=== PATIENT | male | born 1960 | race Caucasian/White ===

== ENCOUNTER 2024-07-06 09:17 | Observation (INO) | payer BC, SELFPAY ==
[2024-07-06] VITALS (46 sets, daily range): BP systolic 109–189; BP diastolic 62–102; PULSE 59–104; RESP 15–30; TEMP 36.2; O2SAT 93–100; BMI 27.2
--- NOTE | ~2024-07-06 | XR_ITS ---
EXAMINATION: XR chest 2V DATE: 07/06/2024 09:48 INDICATION: Chest pain. TECHNIQUE: Frontal and lateral views of the chest were obtained. COMPARISON: None. FINDINGS: There is mild atelectasis versus scarring in left upper lung zone and left lower lung zone. No pleural effusion or pneumothorax. The heart size is normal. IMPRESSION: 1. Mild atelectasis versus scarring in left upper lung zone and left lower lung zone. Reviewed, dictated and finalized at location A. INSTALLER
--- OUTSIDE RECORDS SUMMARY | 2024-07-06 09:20 | XMS_ITS | Clinical Summary ---
Author Organization [facility] Address [address] [place] [address]. [place] [address] Care Team Providers Care Historical Guide Name Role Phone Unavailable Primary Care Provider Unavailabl e Social History Tobacco Use Types Packs/Day Years Used Date Smoking Tobacco: Never Assessed Sex and Gender Information Value Date Recorded Sex Assigned at Not on file Legal Sex Male 7:30 PM CDT Gender Identity Not on file Sexual Orientation Not on file Plan of Treatment Health Maintenance Due Date Last Done Comments Colorectal Cancer Screening Colonoscopy (10 Years) 1962 Annual Physical 1965 Hepatitis C 1980 DTaP, Tdap and Td Vaccines ( 1 - Tdap) 1981 Zoster Vaccines (1 of 2) 2012 COVID-19 Vaccine (2023-2 5 season) 2024 Influenza Adult (#1) 2024 RSV Immunization or 60+ Years (1 - 1-dose 75+ series) 2037 Meningococcal B Vaccine Aged Out No l onger eligible based on patient's age to complete this topic Meningococcal Vaccine Aged Out No samantha tracey eligible based on patient's age to complete this topic Pneumococcal Vaccine: Pediat rics (0 to 5 Years) and At-Risk Patients (6 to 64 Years) Aged Out No longer eligible b ased on patient's age to complete this topic RSV Immunizations Under 20 Months Aged Out No longer eligible based on patient's age to complete this topic
--- OUTSIDE RECORDS SUMMARY | 2024-07-06 09:21 | XMS_ITS | Data Portability ---
Author Organization [place] [facility], Main Office Address [address] [place] [address] Assessment No assessment recorded. Plan of Treatment Reminders Order Date Submit Date Provider Last Modified By Organization Details Last Modified Time Details Appointments Any 30 2024 07:30A M Chantelle Carrasco NP Not available Not available Not available Lab PSA, serum or plasma [email or web address] [place] [address], [address] [facility], [place], [address], 05/27/2024 08:18:01 CBC w/ auto diff 2023 024 [facility], [address] [facility], [place], [address], 12/17/2023 14:49:44 lipid panel, serum 2023 024 GAFFNEY [facility], [address] [facility], [place], [address], 12/17/2023 14:49:43 CMP, serum or plasma 2023 024 GAFFNEY [facility], [address] [facility], [place], [address], 12/17/2023 14:49:44 Referral None recorded. Procedures None recorded. Surgeries None recorded. Imaging None recorded. Medication Orders lisinopri l 10 mg-hydroc hlorothia zide 12.5 mg tablet 2023 024 [facility], [address] [facility], [place], [address], 12/12/2023 15:36:37 atorvasta tin 80 mg tablet 2023 024 [facility], [address] [facility], [place], [address], 12/12/2023 15:36:35 Patient TargetsNo targets recorded. Patient InstructionsNo instructions recorded. Reason for Referral None Reported. Results Created Date Observation Date Name Description Value Unit Range Abnormal Flag Note LastModifiedBy Organization Detail LastModifiedTime 05/19/20 22 05/19/2022 HEMOG LOBIN A1C HA1C 5.8 % 4.0-6. 0 Diabe yayo Scree corey Crite thalia: <5.7% Consi stent with absen ce of diabe yayo 5.7-6 .4% Consi stent with incre ased risk for diabe yayo (pred iabet es) >OR=6 .5% Consi stent with diabe yayo REFER ENCE: Diabe yayo Care 2016, 39(Coon ppl.1 ):s13 -s22 Not Available [facility] (Lab) [address] [place], [address], 05/19/2022 22:31:41 05/19/20 22 05/19/2022 TSH thyroid-stim ulating hormone 1.330 uIU/m L 0.465- 4.680 Not Available [facility] (Lab) [address] [place], [address], 05/19/2022 21:49:17 05/19/20 22 05/19/2022 PSA SCREE N PSA medicare screen 1.03 NG/mL 0.00-4 .00 Not Available [facility] (Lab) [address] [place], [address], 05/19/2022 21:49:16 05/19/20 22 05/19/2022 URIC ACID SERUM uric acid 9.1 mg/dL 3.5-8. 5 high Not Available [facility] (Lab) [address] [place], [address], 05/19/2022 21:44:27 05/19/20 22 05/19/2022 COMPR EHENS DELFINA METAB OLIC PANEL sodium 140 mmol/ L 137-14 5 Not Available [facility] (Lab) [address] [facility] [place], [address], 05/19/2022 21:44:23 05/19/20 22 05/19/2022 COMPR EHENS DELFINA METAB OLIC PANEL potassium 4.0 mmol/ L 3.5-5. 1 Not Available [facility] (Lab) [address] [place], [address], 05/19/2022 21:44:23 05/19/20 22 05/19/2022 COMPR EHENS DELFINA METAB OLIC PANEL chloride 101 mmol/ L 98-107 Not Available [facility] (Lab) [address] [place], [address], 05/19/2022 21:44:23 05/19/20 22 05/19/2022 COMPR EHENS DELFINA METAB OLIC PANEL carbon dioxide 28 mmol/ L 22-30 Not Available [facility] (Lab) [address] [place], [address], 05/19/2022 21:44:23 05/19/20 22 05/19/2022 COMPR EHENS DELFINA METAB OLIC PANEL anion gap 15.0 mmol/ L 14-22 Not Available [facility] (Lab) [address] [place], [address], 05/19/2022 21:44:23 05/19/20 22 05/19/2022 COMPR EHENS DELFINA METAB OLIC PANEL glucose 105 mg/dL 70-99 high Not Available [facility] (Lab) [address] [place], [address], 05/19/2022 21:44:23 05/19/20 22 05/19/2022 COMPR EHENS DELFINA METAB OLIC PANEL BUN 15 mg/dL 8-19 Not Available [facility] (Lab) [address] [place], [address], 05/19/2022 21:44:23 05/19/20 22 05/19/2022 COMPR EHENS DELFINA METAB OLIC PANEL creatinine 0.79 mg/dL 0.66-1 .25 Not Available [facility] (Lab) [address] [place], [address], 05/19/2022 21:44:23 05/19/20 22 05/19/2022 COMPR EHENS DELFINA METAB OLIC PANEL GFR >60 Refer ence Range : [place] ge GFR Healt hy Adult : >60 mL/mi n/1.7 3 m2 Chron ic Kidne y Disea se: 15-60 mL/mi n/1.7 3 m2 Kidne y Failu re: <15/m L/min /1.73 m2 www.n iddk. nih.g ov The MDRD study equat ion has not been valid ated in child madyson <18 years of age; pregn ant women ; the elder ly >85 years of age; or in some racia l or ethni c subgr oups, such as Hispa nics. Outsi de the valid ated kevin eters , estim ated GFR is less accur ate, requi ring clini colten judgm ent on a case- by-ca se basis . Clini colten inter preta tion for other races and ages must be made by the clini rk. The MDRD study equat ion has not been valid ated for the evalu ation of serum creat inine relat ed to nutri dulce l statu s or medic ation usage . For perso ns <18 years of age, a pedia tric GFR calcu lator is avail able on the F websi te: https ://jay w.gopi sandoval.o rg/pr ofess ional s/kdo qi/gf r_cal culat or Not Available [facility] (Lab) [address] [place], [address], 05/19/2022 21:44:23 05/19/20 22 05/19/2022 COMPR EHENS DELFINA METAB OLIC PANEL alkaline phosphatase 105 U/L 38-126 Not Available [facility] (Lab) [address] [place], [address], 05/19/2022 21:44:23 05/19/20 22 05/19/2022 COMPR EHENS DELFINA METAB OLIC PANEL alanine aminotransfe rase 43 U/L 0-50 Not Available [facility] (Lab) [address] [place], [address], 05/19/2022 21:44:23 05/19/20 22 05/19/2022 COMPR EHENS DELFINA METAB OLIC PANEL aspartate aminotransfe rase 31 U/L 15-46 Not Available [facility] (Lab) [address] [place], [address], 05/19/2022 21:44:23 05/19/20 22 05/19/2022 COMPR EHENS DELFINA METAB OLIC PANEL bilirubin, total 1.10 mg/dL 0.20-1 .30 Not Available [facility] (Lab) [address] [place], [address], 05/19/2022 21:44:23 05/19/20 22 05/19/2022 COMPR EHENS DELFINA METAB OLIC PANEL calcium 9.9 mg/dL 8.4-10 .2 Not Available [facility] (Lab) [address] [place], [address], 05/19/2022 21:44:23 05/19/20 22 05/19/2022 COMPR EHENS DELFINA METAB OLIC PANEL total protein 8.2 g/dL 6.3-8. 2 Not Available [facility] (Lab) [address] [place], [address], 05/19/2022 21:44:23 05/19/20 22 05/19/2022 COMPR EHENS DELFINA METAB OLIC PANEL albumin 5.0 g/dL 3.4-5. 0 Not Available [facility] (Lab) [address] [place], [address], 05/19/2022 21:44:23 05/19/20 22 05/19/2022 COMPR EHENS DELFINA METAB OLIC PANEL globulin 3.2 g/dL 2.6-4. 2 Not Available [facility] (Lab) [address] [place], [address], 05/19/2022 21:44:23 05/19/20 22 05/19/2022 COMPR EHENS DELFINA METAB OLIC PANEL A/G ratio 1.6 ratio 1.0-2. 0 Not Available [facility] (Lab) [address] [place], [address], 05/19/2022 21:44:23 05/19/20 22 05/19/2022 LIPID PANEL cholesterol 198 mg/dL 140-19 9 NIH JONES NSUS RECOM MENDA TION FOR MIRACLE STERO L: ADULT CHILD LOW RISK: <200 <170 BORDE RLINE : <200- 239 ----- HIGH RISK: >240 >200 Not Available [facility] (Lab) [address] [place], [address], 05/19/2022 21:44:17 05/19/20 22 05/19/2022 LIPID PANEL triglyceride s 293 mg/dL 0-150 high NIH JONES NSUS REPOR T RECOM MENDA TION FOR TRIGL YCERI GAUTAM: ADULT CHILD LOW RISK: <150 ----- BODER LINE: 150-1 99 ----- HIGH RISK: >200 ----- Not Available [facility] (Lab) [address] [place], [address], 05/19/2022 21:44:17 05/19/20 22 05/19/2022 LIPID PANEL HDL cholesterol 32 mg/dL 40- low Not Available [facility] (Lab) [address] [place], [address], 05/19/2022 21:44:17 05/19/20 22 05/19/2022 LIPID PANEL LDL cholesterol, calculated 107 mg/dL 0-130 NIH JONES NSUS REPOR T RECOM MENDA TIONS FOR LDL: ADULT CHILD LOW RISK <130 <110 (OPTI MAL LDL) <100 ----- BORDE RLINE : 130-1 59 ----- HIGH RISK: >160 >130 A TRIGL YCERI DE RESUL T >400 INVAL IDATE S THE CALCU LATIO N FOR LDL FRACT IONAT ION - THE LDL RESUL T WILL NOT BE REPOR TASHIA. Not Available [facility] (Lab) [address] [place], [address], 05/19/2022 21:44:17 05/19/20 22 05/19/2022 URINA LYSIS COMPL ETE, IRIS color light- yellow Not Available [facility] (Lab) [address] [place], [address], 05/19/2022 21:36:51 05/19/20 22 05/19/2022 URINA LYSIS COMPL ETE, IRIS appear clear Not Available [facility] (Lab) [address] [place], [address], 05/19/2022 21:36:51 05/19/20 22 05/19/2022 URINA LYSIS COMPL ETE, IRIS specific gravity 1.006 1.001- 1.030 Not Available [facility] (Lab) [address] [place], [address], 05/19/2022 21:36:51 05/19/20 22 05/19/2022 URINA LYSIS COMPL ETE, IRIS pH 6.5 pH_un its 5.0-9. 0 Not Available [facility] (Lab) [address] [place], [address], 05/19/2022 21:36:51 05/19/20 22 05/19/2022 URINA LYSIS COMPL ETE, IRIS leukocytes negati ve giancarlo/u L negati ve- Not Available [facility] (Lab) [address] [place], [address], 05/19/2022 21:36:51 05/19/20 22 05/19/2022 URINA LYSIS COMPL ETE, IRIS nitrite negati ve negati ve- Not Available [facility] (Lab) [address] [place], [address], 05/19/2022 21:36:51 05/19/20 22 05/19/2022 URINA LYSIS COMPL ETE, IRIS protein negati ve mg/dL negati ve- Not Available [facility] (Lab) [address] [place], [address], 05/19/2022 21:36:51 05/19/20 22 05/19/2022 URINA LYSIS COMPL ETE, IRIS glucose normal mg/dL normal - Not Available [facility] (Lab) [address] [place], [address], 05/19/2022 21:36:51 05/19/20 22 05/19/2022 URINA LYSIS COMPL ETE, IRIS ketones negati ve mg/dL negati ve- Not Available [facility] (Lab) [address] [place], [address], 05/19/2022 21:36:51 05/19/20 22 05/19/2022 URINA LYSIS COMPL ETE, IRIS urobilinogen normal mg/dL normal - Not Available [facility] (Lab) [address] [place], [address], 05/19/2022 21:36:51 05/19/20 22 05/19/2022 URINA LYSIS COMPL ETE, IRIS bilirubin negati ve mg/dL negati ve- Not Available [facility] (Lab) [address] [place], [address], 05/19/2022 21:36:51 05/19/20 22 05/19/2022 URINA LYSIS COMPL ETE, IRIS blood negati ve mg/dL negati ve- Not Available [facility] (Lab) [address] [place], [address], 05/19/2022 21:36:51 05/19/20 22 05/19/2022 URINA LYSIS COMPL ETE, IRIS white blood cells 0-8 /i??h pfi?? 0-8 Not Available [facility] (Lab) [address] [place], [address], 05/19/2022 21:36:51 05/19/20 22 05/19/2022 URINA LYSIS COMPL ETE, IRIS red blood cells 0-4 /i??h pfi?? 0-4 Not Available [facility] (Lab) [address] [facility] [place], [address], 05/19/2022 21:36:51 05/19/20 22 05/19/2022 URINA LYSIS COMPL ETE, IRIS bacteria none Not Available [facility] (Lab) [address] [place], [address], 05/19/2022 21:36:51 05/19/20 22 05/19/2022 URINA LYSIS COMPL ETE, IRIS mucous occasi onal /i??l pfi?? abnormal Not Available [facility] (Lab) [address] [place], [address], 05/19/2022 21:36:51 05/19/20 22 05/19/2022 URINA LYSIS COMPL ETE, IRIS squamous epithelial none /i??l pfi?? abnormal Not Available [facility] (Lab) [address] [facility] [place], [address], 05/19/2022 21:36:51 05/19/20 22 05/19/2022 CBC W/O DIFFE RENTI AL white blood cells 4.5 x10'3 /uL 4.2-10 .8 Not Available [facility] (Lab) [address] [place], [address], 05/19/2022 21:22:43 05/19/20 22 05/19/2022 CBC W/O DIFFE RENTI AL red blood cells 5.12 x10'6 /uL 4.10-5 .80 Not Available [facility] (Lab) [address] [place], [address], 05/19/2022 21:22:43 05/19/20 22 05/19/2022 CBC W/O DIFFE RENTI AL hemoglobin 16.3 g/dL 13.2-1 7.0 Not Available [facility] (Lab) [address] [place], [address], 05/19/2022 21:22:43 05/19/20 22 05/19/2022 CBC W/O DIFFE RENTI AL hematocrit 48.7 % 39.3-5 0.0 Not Available [facility] (Lab) [address] [place], [address], 05/19/2022 21:22:43 05/19/20 22 05/19/2022 CBC W/O DIFFE RENTI AL mean red cell volume 95.1 fL 80.0-9 7.0 Not Available [facility] (Lab) [address] [place], [address], 05/19/2022 21:22:43 05/19/20 22 05/19/2022 CBC W/O DIFFE RENTI AL mean red cell hemoglobin 31.8 pg 27.0-3 3.0 Not Available [facility] (Lab) [address] [place], [address], 05/19/2022 21:22:43 05/19/20 22 05/19/2022 CBC W/O DIFFE RENTI AL mean RBC HGB concentratio n 33.5 g/dL 31.0-3 6.0 Not Available [facility] (Lab) [address] [place], [address], 05/19/2022 21:22:43 05/19/20 22 05/19/2022 CBC W/O DIFFE RENTI AL red cell distribution width 12.1 % 11.8-1 5.5 Not Available [facility] (Lab) [address] [place], [address], 05/19/2022 21:22:43 05/19/20 22 05/19/2022 CBC W/O DIFFE RENTI AL platelets 282 x10'3 /uL 150-40 0 Not Available [facility] (Lab) [address] [place], [address], 05/19/2022 21:22:43 05/19/20 22 05/19/2022 CBC W/O DIFFE RENTI AL mean platelet volume 11.2 fL 9.0-12 .4 Not Available [facility] (Lab) [address] [place], [address], 05/19/2022 21:22:43 06/01/20 22 06/01/2022 COLOG UARD cologuard result reportable negati ve negati ve NEGAT DELFINA TEST RESUL T. A negat delfina Colog uard resul t indic ates a low likel ihood that a color ectal cance r (CRC) or advan patricia adeno ma (kasey omato us polyp s with more advan patricia pre-m align ant featu res) is prese nt. The chanc e that a perso n with a negat delfina Colog uard test has a color ectal cance r is less than 1 in 1500 (nega tive predi ctive value >99.9 %) or has an advan patricia adeno ma is less than 5.3% (nega tive predi ctive value 94.7% ). These data are based on a prosp ectiv e cross -sect ional study of 10,00 0 indiv idual s at [place] [facility] risk for color ectal cance r who were scree camilla with both Colog uard and colon oscop y. (Debby Basurto et al, N Engl J Med 2014; 370(1 4):12 86-12 97) The lora l value (refe rence range ) for this assay is negat delfina. COLOG UARD RE-SC REENI NG RECOM MENDA TION: Perio dic color ectal cance r scree corey is an impor tant part of preve ntive healt hcare for asymp tomat ic indiv idual s at [facility] risk for color ectal cance r. Follo wing a negat delfina Colog uard resul t, the Ameri can Cance r Socie ty and U.S. Multi -Soci ety Task Force scree corey guide lines recom mend a Colog uard re-sc reeni ng inter shruthi of 3 years . Refer ences : Ameri can Cance r Socie ty Guide line for Color ectal Cance r Scree corey: https ://jay w.can cer.o rg/ca ncer/ colon -rect al-ca ncer/ detec tion- diagn osis- stagi ng/ac s-rec ommen datio ns.ht ml.; Ulises DK, Mandie mccracken CR, Rachelle DevlinK, Color ectal Cance r Scree corey: Recom menda tions for Physi cians and Patie nts from the U.S. Multi -Soci ety Task Force on Color ectal Cance r Scree corey , Am Claus vazquezog y 2017; 112:1 016-1 030. TEST DESCR IPTIO N: [place] site algor ithmi c brenna sis of stool DNA-b iomar kers with hemog lobin immun oassa y. Quant itati ve value s of indiv idual bioma rkers are not repor table and are not assoc iated with indiv idual bioma rker resul t refer ence range s. Colog uard is inten ded for color ectal cance r scree corey of adult s of eithe r sex, 45 years or older , who are at [facility] sk for color ectal cance r (CRC) . Colog uard has been appro arnol for use by the U.S. FDA. The perfo rmanc e of Colog uard was estab lishe d in a cross secti onal study of [place] [facility] sk adult s aged 50-84 . Colog uard perfo rmanc e in patie nts ages 45 to 49 years was estim ated by sub-g roup brenna sis of near- age group s. Colon oscop ies perfo rmed for a posit delfina resul t may find as the most clini miranda signi fican t lesio n: color ectal cance r [4.0% ], advan patricia adeno ma (incl uding sessi le beatriz tashia polyp s great er than or equal to 1cm diame ter) [20%] or non- advan patricia adeno ma [31%] ; or no color ectal neopl abdoulaye [45%] . These estim ates are deriv ed from a prosp ectiv e cross -sect ional scree corey study of 0 indiv idual s at [facility] risk for color ectal cance r who were scree camilla with both Colog uard and colon oscop y. (Debby Basurto et al, N Engl J Med 2014; 370(1 4):12 86-12 97.) Colog uard may produ ce a false negat delfina or false posit delfina resul t (no color ectal cance r or preca ncero us polyp prese nt at colon oscop y follo w up). A negat delfina Colog uard test resul t does not guara ntee the absen ce of CRC or advan patricia adeno ma (pre- cance r). The curre nt Colog uard scree corey inter shruthi is every 3 years . (Amer ican Cance r Socie ty and U.S. Multi -Soci ety Task Force ). Colog uard perfo rmanc e data in a 0 patie nt pivot al study using colon oscop y as the refer ence metho d can be acces sed [facility] locat ion: www.e xactl abs.c om/re sults . Addit ional descr iptio n of the Colog uard test proce ss, warni ngs and preca ution s can be found at www.brandan bradshaw.brandan om. Not Available [facility] (Cologuard Orders Only) [address], [place], [address], 06/08/2022 09:53:36 12/16/19 24 12/17/2023 LIPID PANEL , STAND NEETU cholesterol, total 161 mg/dL <200 normal Not Available [place] [address] [place], [address], 12/17/2023 14:49:43 12/16/19 24 12/17/2023 LIPID PANEL , STAND NEETU HDL cholesterol 28 mg/dL > or = 40 low Not Available [employer] [place] [address] [place], [address], 12/17/2023 14:49:43 12/16/19 24 12/17/2023 LIPID PANEL , STAND NEETU triglyceride s 244 mg/dL <150 high If a non-f astin g speci men was colle cted, consi oj repea t trigl yceri de testi ng on a fasti ng speci men if clini miranda indic ated. [place] otoole et al. J. of Clin. Lipid ol. 2015; 9:129 -169. Not Available [place] [address] [place], [address], 12/17/2023 14:49:43 12/16/19 24 12/17/2023 LIPID PANEL , STAND NEETU LDL-choleste rol 96 mg/dL _(colten c) normal Refer ence range : <100 Magaly able range <100 mg/dL for prima ry preve ntion ; <70 mg/dL for patie nts with CHD or diabe tic patie nts with > or = 2 CHD risk facto rs. LDL-C is now calcu lated using the Radha n-Hop kins calcu latlanny n, which is a valid ated novel metho d provi ding kalia r accur acy than the Fried angel equat ion in the estim ation of LDL-C . Radha monroe SS et al. ARELY. 2013; 310(1 9): 2061- 2068 (http ://ed ucati on.[place] [employer] Srinivas mirandaInventarium.mobi. xoompark/f aq/FA Q164) Not Available [address], [address], 12/17/2023 14:49:43 12/16/19 24 12/17/2023 LIPID PANEL , STAND NEETU chol/HDLC ratio 5.8 (calc ) <5.0 high Not Available [address], [address], 12/17/2023 14:49:43 12/16/19 24 12/17/2023 LIPID PANEL , STAND NEETU non HDL cholesterol 133 mg/dL _(colten c) <130 high For patie nts with diabe yayo plus 1 major ASCVD risk facto r, treat ing to a non-H DL-C goal of <100 mg/dL (LDL- C of <70 mg/dL ) is consi dered a thera peuti c optio n. Not Available [address], [address], 12/17/2023 14:49:43 12/16/19 24 12/17/2023 COMPR EHENS DELFINA METAB OLIC PANEL glucose 99 mg/dL 65-99 normal Fasti ng refer ence inter shruthi Not Available [address], [address], 12/17/2023 14:49:44 12/16/19 24 12/17/2023 COMPR EHENS DELFINA METAB OLIC PANEL urea nitrogen (BUN) 16 mg/dL 7-25 normal Not Available [address], [address], 12/17/2023 14:49:44 12/16/19 24 12/17/2023 COMPR EHENS DELFINA METAB OLIC PANEL creatinine 0.80 mg/dL 0.70-1 .35 normal Not Available [address], [address], 12/17/2023 14:49:44 12/16/19 24 12/17/2023 COMPR EHENS DELFINA METAB OLIC PANEL eGFR 101 mL/mi n/1.7 3m2 > or = 60 normal Not Available [address], [address], 12/17/2023 14:49:44 12/16/19 24 12/17/2023 COMPR EHENS DELFINA METAB OLIC PANEL BUN/creatini ne ratio SEE NOTE: (calc ) 6-22 Not Repor tashia: BUN and Creat inine are withi n refer ence range . Not Available [address], [address], 12/17/2023 14:49:44 12/16/19 24 12/17/2023 COMPR EHENS DELFINA METAB OLIC PANEL sodium 141 mmol/ L 135-14 6 normal Not Available [address], [address], 12/17/2023 14:49:44 12/16/19 24 12/17/2023 COMPR EHENS DELFINA METAB OLIC PANEL potassium 4.7 mmol/ L 3.5-5. 3 normal Not Available [address], [address], 12/17/2023 14:49:44 12/16/19 24 12/17/2023 COMPR EHENS DELFINA METAB OLIC PANEL chloride 103 mmol/ L 98-110 normal Not Available [address], [address], 12/17/2023 14:49:44 12/16/19 24 12/17/2023 COMPR EHENS DELFINA METAB OLIC PANEL carbon dioxide 26 mmol/ L 20-32 normal Not Available [address], [address], 12/17/2023 14:49:44 12/16/19 24 12/17/2023 COMPR EHENS DELFINA METAB OLIC PANEL calcium 9.5 mg/dL 8.6-10 .3 normal Not Available [address], [address], 12/17/2023 14:49:44 12/16/19 24 12/17/2023 COMPR EHENS DELFINA METAB OLIC PANEL protein, total 7.2 g/dL 6.1-8. 1 normal Not Available [address], [address], 12/17/2023 14:49:44 12/16/19 24 12/17/2023 COMPR EHENS DELFINA METAB OLIC PANEL albumin 4.3 g/dL 3.6-5. 1 normal Not Available [address], [address], 12/17/2023 14:49:44 12/16/19 24 12/17/2023 COMPR EHENS DELFINA METAB OLIC PANEL globulin 2.9 g/dL_ (calc ) 1.9-3. 7 normal Not Available [address], [address], 12/17/2023 14:49:44 12/16/19 24 12/17/2023 COMPR EHENS DELFINA METAB OLIC PANEL albumin/glob ulin ratio 1.5 (calc ) 1.0-2. 5 normal Not Available [address], [address], 12/17/2023 14:49:44 12/16/19 24 12/17/2023 COMPR EHENS DELFINA METAB OLIC PANEL bilirubin, total 1.0 mg/dL 0.2-1. 2 normal Not Available [address], [address], 12/17/2023 14:49:44 12/16/19 24 12/17/2023 COMPR EHENS DELFINA METAB OLIC PANEL alkaline phosphatase 111 U/L 35-144 normal Not Available [address], [address], 12/17/2023 14:49:44 12/16/19 24 12/17/2023 COMPR EHENS DELFINA METAB OLIC PANEL AST 13 U/L 10-35 normal Not Available [address], [address], 12/17/2023 14:49:44 12/16/19 24 12/17/2023 COMPR EHENS [facility] METAB OLIC PANEL ALT 20 U/L 9-46 normal Not Available [address], [address], 12/17/2023 14:49:44 12/16/19 24 12/17/2023 CBC (INCL UDES DIFF/ PLT) white blood cell count 6.4 thous and/u L 3.8-10 .8 normal Not Available [address], [address], 12/17/2023 14:49:44 12/16/19 24 12/17/2023 CBC (INCL UDES DIFF/ PLT) red blood cell count 4.98 nunu on/uL 4.20-5 .80 normal Not Available [address], [address], 12/17/2023 14:49:44 12/16/19 24 12/17/2023 CBC (INCL UDES DIFF/ PLT) hemoglobin 15.6 g/dL 13.2-1 7.1 normal Not Available [address], [address], 12/17/2023 14:49:44 12/16/19 24 12/17/2023 CBC (INCL UDES DIFF/ PLT) hematocrit 46.4 % 38.5-5 0.0 normal Not Available [address], [address], 12/17/2023 14:49:44 12/16/19 24 12/17/2023 CBC (INCL UDES DIFF/ PLT) MCV 93.2 fL 80.0-1 00.0 normal Not Available [address], [address], 12/17/2023 14:49:44 12/16/19 24 12/17/2023 CBC (INCL UDES DIFF/ PLT) MCH 31.3 pg 27.0-3 3.0 normal Not Available [address], [address], 12/17/2023 14:49:44 12/16/19 24 12/17/2023 CBC (INCL UDES DIFF/ PLT) MCHC 33.6 g/dL 32.0-3 6.0 normal Not Available [address], [address], 12/17/2023 14:49:44 12/16/19 24 12/17/2023 CBC (INCL UDES DIFF/ PLT) RDW 12.0 % 11.0-1 5.0 normal Not Available [address], [address], 12/17/2023 14:49:44 12/16/1912/17/2023 CBC (INCL UDES DIFF/ PLT) platelet count 286 thous and/u L 140-40 0 normal Not Available [address], [address], 12/17/2023 14:49:44 12/16/19 24 12/17/2023 CBC (INCL UDES DIFF/ PLT) MPV 10.8 fL 7.5-12 .5 normal Not Available [address], [address], 12/17/2023 14:49:44 12/16/19 24 12/17/2023 CBC (INCL UDES DIFF/ PLT) absolute neutrophils 3584 cells /uL 1500-7 800 normal Not Available [address], [address], 12/17/2023 14:49:44 12/16/19 24 12/17/2023 CBC (INCL UDES DIFF/ PLT) absolute lymphocytes 2035 cells /uL 850-39 00 normal Not Available [address], [address], 12/17/2023 14:49:44 12/16/19 24 12/17/2023 CBC (INCL UDES DIFF/ PLT) absolute monocytes 461 cells /uL 200-95 0 normal Not Available [address], [address], 12/17/2023 14:49:44 12/16/19 24 12/17/2023 CBC (INCL UDES DIFF/ PLT) absolute eosinophils 269 cells /uL 15-500 normal Not Available [address], [address], 12/17/2023 14:49:44 12/16/19 24 12/17/2023 CBC (INCL UDES DIFF/ PLT) absolute basophils 51 cells /uL 0-200 normal Not Available [address], [address], 12/17/2023 14:49:44 12/16/19 24 12/17/2023 CBC (INCL UDES DIFF/ PLT) neutrophils 56 % normal Not Available [address], [address], 12/17/2023 14:49:44 12/16/19 24 12/17/2023 CBC (INCL UDES DIFF/ PLT) lymphocytes 31.8 % normal Not Available [address], [address], 12/17/2023 14:49:44 12/16/19 24 12/17/2023 CBC (INCL UDES DIFF/ PLT) monocytes 7.2 % normal Not Available [facility] [address] [place], [address], 12/17/2023 14:49:44 12/16/19 24 12/17/2023 CBC (INCL UDES DIFF/ PLT) eosinophils 4.2 % normal Not Available [address], [address], 12/17/2023 14:49:44 12/16/19 24 12/17/2023 CBC (INCL UDES DIFF/ PLT) basophils 0.8 % normal Not Available [facility] [address] [place], [address], 12/17/2023 14:49:44 Result Notes None recorded. Problems Name Problem SNOMED Code Status Onset Date Resolution Date Notes Provider Name and Address Organization Details Recorded Time Pain in toe 286406305 Active Not Available [facility] 3 08:57:33 Hypertriglyce ridemia 262264962 Active Not Available [facility] 3 08:57:33 Hypertensive disorder 58503945 Active Not Available [facility] 3 08:57:34 Hand pain 91478902 Active Not Available [facility] 3 08:57:34 Upper respiratory infection 46423032 Active Not Available [facility] 3 08:57:34 Hyperlipidemi a 44074894 Active Not Available [facility] 3 08:57:34 Essential hypertension 22315805 Active [address] CATIA Steele-Brandan [address] [facility], [facility] [address], [place], [address] , [facility] [employer] [facility] 4 15:31:29 Problem Notes None recorded. Medical Equipment None Reported. Allergies No known drug allergies Medications Name Sig Start Date Stop Date Status Note LastModified by Organization Details LastModified Time atorvastatin 80 mg tablet Take 1 tablet every day by oral route. active Not Available Not Available No t Available allopurinol 100 mg tablet Take 1 tablet twice a day by oral route for 30 days. 05/19 completed Not Available Not Available Not Available tramadol 50 mg tablet 12/11 completed Not Available Not Available Not Available amoxicillin 875 mg tablet Take 1 tablet every 12 hours by oral route for 7 days. active Not Available Not Available No t Available pravastatin 80 mg tablet active Not Available Not Available Not Available hydrocodone 7.5 mg-acetamino phen 325 mg tablet active Not Available Not Available Not Available indomethacin 50 mg capsule Take 1 capsule every 8 hours by oral route as needed for 30 days. 12/11 completed Not Available Not Available Not Available lisinopril 10 mg-hydrochlo rothiazide 12.5 mg tablet TAKE 1 TABLET BY MOUTH ONCE DAILY active Not Available Not Available No t Available colchicine 0.6 mg tablet 12/11 completed Not Available Not Available Not Available Suprep Bowel Prep Kit 17.5 gram-3.13 gram-1.6 gram oral solution active Not Available Not Available Not Available colchicine 0.6 mg capsule Take 1 capsule twice a day by oral route for 30 days. 12/11 completed Not Available Not Available Not Available Vitals Date Recorded Body mass index (BMI) Body height Oxygen saturation Oxygen saturation in Arterial blood by Pulse oximetry Oxygen saturation Oxygen saturation in Arterial blood by Pulse oximetry Heart rate Heart rate Body temperature Body temperature Body weight Body weight Systolic blood pressure Diastolic blood pressure Systolic blood pressure Diastolic blood pressure Provider Name and Address Organization Details Last Updated DateTime 3 28.7 kg/m2 170.18 cm 98 % 98 % 98 % 98 % 86 /min 87 /min 97.4 [degF] 98.6 [degF] 34533.5 9 g 49989.4 g 122 mm[Hg] 82 mm[Hg] 130 mm[Hg] 89 mm[Hg] Not Available [employer] 3 08:56:24 Date Recorded Body weight Body temperature Heart rate Oxygen saturation Oxygen saturation in Arterial blood by Pulse oximetry Systolic blood pressure Diastolic blood pressure Provider Name and Address Organization Details Last Updated DateTime 4 87204.2 6 g 98.1 [degF] 100 /min 97 % 97 % 182 mm[Hg] 96 mm[Hg] Georgina Sharif RN [place] [employer] [facility] 4 15:18:05 Social History Question Answer Notes LastModified by Organizat ion Details LastModified Time Tobacco Smoking Status Former Smoker smoked 2-3 yrs Not Available [facility] 08/03/2022 08:54:31 What Is Your Level Of Alcohol Consumption? Occasional [id number] Information not available 08/03/2022 What Is Your Level Of Caffeine Consumption? Moderate [id number] Information not available 08/03/2022 How Much Tobacco Do You Chew? None [id number] Information not available 08/03/2022 In The 14 Days Before Symptom Onset, Have You Had Close Contact With A Laboratory-confir med COVID-19 While That Case Was Ill? No [id number] Information not available 08/03/2022 In The 14 Days Before Symptom Onset, Have You Had Close Contact With A Person Who Is Under Investigation For COVID-19 While That Person Was Ill? No [id number] Information not available 08/03/2022 What Type Of Diet Are You Following? REGULAR [id number] Information not available 08/03/2022 Which Illicit Or Recreational Drugs Have You Used? None [id number] Information not available 08/03/2022 Do You Or Have You Ever Used E-cigarettes Or Vape? Never Used Electronic Cigarettes [id number] Information not available 08/03/2022 Are There Any Guns Present In Your Home? No [id number] Information not available 08/03/2022 What Was The Date Of Your Most Recent Tobacco Screening? 02/16/2018 [id number] Information not available 08/03/2022 Do You Or Have You Ever Used Smokeless Tobacco? Never Used Smokeless Tobacco [id number] Information not available 08/03/2022 Sex: Unknown Functional Status Question Answer Note LastModified by Organizat ion Details LastModified Time What is your exercise level? Occasional [id number] Information not available 08/03/2022 Mental Status None recorded. Family History Nothing Reported. Medical History No medical history recorded. Immunizations Vaccine Type Date Status Note Provider Nam e and Address Organization Details Recorded Time Tdap 08/18/2017 completed Not Available [facility] 08/03/2022 09:00:42 Past Encounters Encounter ID Performer Location Encounter Start Date Encounter Closed Date Diagnosis/Indication Diagnosis SNOMED-CT Code Diagnosis ICD10 Code Diagnosis Note [id number] [facility] Primary Care Elizabeth priest [address] [facility] [address] [place] [id number] 08/27/2020 00:00:00 08/27/2020 16:08:20 [id number] [facility] Primary Care Elizabeth priest [address] [facility] [address] [place] [id number] 05/19/2022 00:00:00 05/19/2022 13:40:05 [id number] VICKI Steele [facility] Primary Care Elizabeth priest [address] [facility] [address] [place] [id number] 12/12/2023 15:11:20 12/12/2023 15:57:19 Hyperlipidemia 55394004 E78.5 discussed low cholestero l, heart healthy diet.labs ordered.wi ll continue current medication regimen. Hypertensive disorder 38 842546 I10 BP 182/96--pa tient has been out of medication discussed heart healthy, low sodium diet.labs ordered.wi ll continue with current medication regimen. Adult heal th examination 895222033 Z00.01 discussed healthy diet and exercise with patientdis cussed routine follow up (every year)--allan ner if needed Screening for malignant neoplasm of prostate 542833947 Z12.5 PSA repeat 05/2024 Health Concerns Section Related Observation LastModified by Organization Detai ls LastModified Time None Recorded Concern Status LastModified by Organization Details LastModified Time None Recorded Advance Directives Directive None Recorded Payers Encounter Date Sequence Insurance Name Policy Number Policy [employer] Covered Member ID [employer] Member ID Guarantor Name 12/12/2023 1 [place] [id number] Olivier Gr [id number] Olivier Gr Notes Date Note Type Note Provider Name and Address Organization Details Recorded Time 12/12/2023 text/html Patient is a 63 year old male that presents to the office for annual wellness exam. Patient denies any medical concerns. Patient reports he is doing well on current medications--mcdonald s been out of Lisinopril/HCTZ for the last few days. labs---ordered to [facility] due ologuar d due 2026LDCT scan---declines , will do it next year.vaccines-- declines VICKI Steele [address], [facility] [address], [place], [address], [place] [facility] 12/12/2023 15:51:02
--- NOTE | 2024-07-06 09:35 | ECG_ITS ---
Test Date: 2024-07-06 09:39:52 Measurements Intervals [place] Rate: 88 P: 38 NE: 162 QRS: -36 QRSD: 115 T: 29 QT: 362 QTc: 439 Interpretive Statements SINUS RHYTHM LEFT AXIS DEVIATION INCOMPLETE LEFT BUNDLE BRANCH BLOCK DELAYED PRECORDIAL R/S TRANSITION LEFT VENTRICULAR HYPERTROPHY AND ST-T CHANGE CONSIDER INFERIOR INFARCT, AGE INDETERMINATE BASELINE WANDER- I, III, AVR, AVL, V2-V3 ABNORMAL ECG No previous ECG available for comparison Electronically Signed On 07-06-2024 10:28:00 [employer] by Ford Gonzalez D.O.
[2024-07-06 09:48] LABS: Basophils Absolute Auto 0.1 K/mm3 (0.0-0.1); Eosinophils Absolute Auto 0.2 K/mm3 (0-0.3); Eosinophils Percent Auto 2.7 % (0-4.4); Hematocrit 49.9 % (42.0-52.0); Hemoglobin 17.2 g/dL (14.0-18.0); Immature Granulocyte Absolute 0.02 K/mm3 (0.00-0.031); Immature Granulocyte Percent A 0.3 % (0-0.5); Lymphocytes Absolute Auto 1.75 K/mm3 (0.9-3.2); Mean Corpuscular HGB Conc 34.5 g/dl (32-36); Mean Corpuscular Hemoglobin 31.9 pg (26-34); Mean Corpuscular Volume 92.6 fl (80-100); Mean Platelet Volume 10.6 fl (7.4-10.4); Monocytes Absolute Auto 0.5 K/mm3 (0.1-0.6); Monocytes Percent Auto 7.4 % (2.6-8.5); Neutrophils Absolute Auto 4.7 K/mm3 (1.3-6.7); Neutrophils Percent Auto 64.6 % (45.5-73.1); Platelet Count Result 284 k/mm3 (150-375); Red Blood Count 5.39 M/mm3 (4.6-6.20); White Blood Count 7.3 K/mm3 (4.5-10.0)
[2024-07-06 10:01] LABS: INR 0.9; Partial Thromboplastin Time 24.7 Seconds (22.3-36.8); Prothrombin Time 12.9 Seconds (11.1-14.7)
[2024-07-06 10:03] LABS: Alanine Aminotransferase 42 U/L (6-50); Albumin Level 5.3 g/dL (3.5-5.1); Alkaline Phosphatase 124 U/L (38-126); Anion Gap 15 mmol/L (4-12); Aspartate Amino Transferase 27 U/L (17-59); Blood Urea Nitrogen 19 mg/dL (9-20); Carbon Dioxide 26 mmol/L (22-30); Chloride 101 mmol/L (98-107); Estimated CRCL calculation 74 ml/min; Estimated Glomerular Filt Rate > 60; Glucose 116 mg/dL (65-110); Lipase 96 U/L (23-300); Potassium 3.9 mmol/L (3.4-5.0); Sodium 142 mmol/L (137-145)
[2024-07-06 10:10] LABS: Troponin I < 0.012 ng/mL (0.000-0.034)
--- OUTSIDE RECORDS SUMMARY | 2024-07-06 10:15 | XMS_ITS | Clinical Summary ---
Author Organization [facility] Address [address] [place] [address]. [place] [address] Care Team Providers Care Office Nurse Practitioner Name Role Phone Unavailable Primary Care Provider [...]
--- NOTE | 2024-07-06 10:18 | ED.GENADULT ---
HPI - General Adult General Chief complaint: Recheck/Abnormal Lab/Rx Stated complaint: SHORTNESS OF BREATH WITH EXERTION FOR MONTHS Time Seen by Provider: 07/06/24 09:59 History of Present Illness HPI narrative: 64-year-old male present to the emergency department for evaluation for intermittent exertional chest pain. Patient states for approximately the last month he has had intermittent chest pain. Patient reports the last time he had chest pain was approximately a week ago when he was doing some heavy lifting. Patient does not describe it as pain specifically he describes it as a burning sensation. Patient attempted to have follow-up at the [facility], he was then referred to the Urgent Care and then referred to the emergency department for further evaluation. Upon arrival emergency department patient states he is having no pain no pressure no burning sensation and he has not had this sensation for over a week. Patient denies any current smoking, patient denies any recent long travel, patient denies any prior history of PE or DVT. Patient denies any cardiac history. Patient is not diabetic, patient does take medications for hypertension and high cholesterol. Related Data Home Medications ?Medication ?Instructions ?Recorded ?Confirmed ?Last Taken ?Type atorvastatin 80 mg tablet 80 mg PO QPM 07/06/24 07/06/24 Unknown History lisinopril 10 1 tablet PO QPM 07/06/24 07/06/24 Unknown History mg-hydrochlorothiazide 12.5 mg tablet Allergies Allergy/AdvReac Type Severity Reaction Status Date / Time No Known Allergies Allergy Unverified 07/06/24 13:47 Review of Systems Review of Systems: All systems reviewed & are unremarkable except as noted in HPI and below PMFSH Past Medical History Medical History Hyperlipidemia Hypertension Social History Social History Smoking status: Never smoker Alcohol intake: never Substance use: never Substance use type: does not use Do You Feel Safe in your Home?: Yes Lack of Transportation: YES Lack of Food: Never True Current Housing: I Have Housing Concerned About Future Housing: No Difficulty Paying Gas/Electric Bills: No Difficulty Paying for Meds: No Currently Unemployed: No Education: High School Diploma/GED Difficulty w/ Childcare or Family Care: No Spiritual care concerns: No Exam Narrative: APPEARANCE: Well appearing, no pain, no distress, well-nourished. HEAD: normocephalic, atraumatic. EYES: PERRLA/EOMI, conjunctivae clear. NOSE: Normal no drainage EARS:TMS clear with good light reflex. THROAT: Pharynx clear, no exudate. NECK: Supple. No adenopathy, no masses. RESPIRATORY: Airway patent, respirations nonlabored. Clear to auscultation bilaterally, no rales, rhonchi, wheezing. CARDIOVASCULAR: Regular rate and rhythm without murmurs rubs or gallops. ABDOMINAL: Soft, nontender, nondistended, normal bowel sounds MUSCULOSKELETAL: Moves all extremities. Strength/ROM intact, No edema, No calf tenderness. NEURO: Alert. Cranial nerves II through XII intact. Good gait. Good coordination SKIN: Warm, dry. Normal Color Course Course Emergency Course: Patient was admitted to the hospitalist for further cardiac rule out Vital Signs Vital signs: Vital Signs Temperature 97.1 F L 07/06/24 09:20 Pulse Rate 75 07/06/24 09:20 Respiratory Rate 18 07/06/24 09:20 Blood Pressure 189/87 H 07/06/24 09:20 Pulse Oximetry 100 07/06/24 09:20 Oxygen Delivery Room Air 07/06/24 09:20 Temperature 97.1 F L 07/06/24 09:20 Pulse Rate 86 07/06/24 18:00 Respiratory Rate 30 H 07/06/24 15:01 Blood Pressure 119/62 07/06/24 15:01 Pulse Oximetry 98 07/06/24 15:01 Oxygen Delivery Room Air 07/06/24 09:20 Medical Decision Making [facility] Narrative Medical decision making narrative: 64-year-old male presents to the emergency department for evaluation exertional chest pain. Patient was afebrile with no leukocytosis and a stable hemoglobin of 17.2. Patient's D-dimer is not elevated. INR 0.9. No significant abnormalities on the patient's CMP, patient did have negative serial troponins and negative serial EKGs. Patient was negative for influenza RSV and for COVID chest x-ray shows no acute cardiopulmonary abnormality. Patient does have history of hypertension and high cholesterol. Patient's symptoms are concerning for exertional angina. Patient was offered admission for further cardiac rule out and patient was willing to stay. Case was discussed with hospitalist, patient was admitted to the U. Differential Diagnosis Differential Diagnosis: COVID, pneumonia, RSV, costochondritis, pulmonary embolism, ACS Vital Signs Vital Signs: Vital Signs Temperature 97.1 F L 07/06/24 09:20 Pulse Rate 75 07/06/24 09:20 Respiratory Rate 18 07/06/24 09:20 Blood Pressure 189/87 H 07/06/24 09:20 Pulse Oximetry 100 07/06/24 09:20 Oxygen Delivery Room Air 07/06/24 09:20 Temperature 97.1 F L 07/06/24 09:20 Pulse Rate 86 07/06/24 18:00 Respiratory Rate 30 H 07/06/24 15:01 Blood Pressure 119/62 07/06/24 15:01 Pulse Oximetry 98 07/06/24 15:01 Oxygen Delivery Room Air 07/06/24 09:20 Lab Data Lab results reviewed: Yes I reviewed the patient's lab results. 07/06/24 09:37 07/06/24 09:37 Labs: Lab Results 07/06/24 07/06/24 07/06/24 Range/Units 09:37 10:17 12:29 WBC 7.3 (4.5-10.0) K/mm3 RBC 5.39 (4.6-6.20) M/mm3 Hgb 17.2 (14.0-18.0) g/dL Hct 49.9 (42.0-52.0) % MCV 92.6 (80-100) fl MCH 31.9 (26-34) pg MCHC 34.5 (32-36) g/dl RDW 12.0 (11.5-14.5) % Plt Count 284 (150-375) k/mm3 MPV 10.6 H (7.4-10.4) fl Immature Gran % (Auto) 0.3 (0-0.5) % Neut % (Auto) 64.6 (45.5-73.1) % Lymph % (Auto) 24.0 (18.3-44.2) % Franklin % (Auto) 7.4 (2.6-8.5) % Eos % (Auto) 2.7 (0-4.4) % Baso % (Auto) 1.0 (0.2-1.2) % Lymph # (Auto) 1.75 (0.9-3.2) K/mm3 Franklin # (Auto) 0.5 (0.1-0.6) K/mm3 Eos # (Auto) 0.2 (0-0.3) K/mm3 Baso # (Auto) 0.1 (0.0-0.1) K/mm3 Abs Immat Gran (auto) 0.02 (0.00-0.031) K/mm3 Absolute Neuts (auto) 4.7 (1.3-6.7) K/mm3 Absolute Nucleated RBC 0.000 (0.0-0.012) K/mm3 Nucleated RBC % 0.0 (0.0-0.2) % PT 12.9 (11.1-14.7) Seconds INR 0.9 APTT 24.7 (22.3-36.8) Seconds D-Dimer 0.31 (<0.48) ug/mL Sodium 142 (137-145) mmol/L Potassium 3.9 (3.4-5.0) mmol/L Chloride 101 (98-107) mmol/L Carbon Dioxide 26 (22-30) mmol/L Anion Gap 15 H (4-12) mmol/L BUN 19 (9-20) mg/dL Creatinine 0.84 (0.7-1.3) mg/dL Estim Creat Clear Calc 74 ml/min Estimated GFR > 60 (59 - ) Glucose 116 H (65-110) mg/dL Calcium 10.0 (8.4-10.2) mg/dL Total Bilirubin 1.0 (0.2-1.3) mg/dL AST 27 (17-59) U/L ALT 42 (6-50) U/L Alkaline Phosphatase 124 (38-126) U/L Troponin I < 0.012 < 0.012 (0.000-0.034) ng/mL NT-Pro-B Natriuret Pep 32 (19.9-100) pg/mL Total Protein 9.0 H (6.3-8.2) g/dL Albumin 5.3 H (3.5-5.1) g/dL Lipase 96 (23-300) U/L Influenza A (RT-PCR) Negative (Negative) Influenza B (RT-PCR) Negative (Negative) RSV (RT-PCR) Negative (Negative) SARS-CoV-2 RNA (RT-PCR) Negative (Negative) Imaging Data Radiologist's impression: Impressions Chest X-Ray 07/06/24 09:51 IMPRESSION: 1. Mild atelectasis versus scarring in left upper lung zone and left lower lung zone. Discharge Plan Discharge Clinical Impression: Chest pain, exertional Patient Disposition: Still a Patient Condition: Serious Quality HEART score for chest pain patients History: moderately suspicious ECG: normal Age: > 45 and < 65 years Risk factors: 1 or 2 risk factors Troponin: < or = to 1x normal limit Heart score: 3
[2024-07-06 10:39] LABS: NT Pro B Type Natriuretic Pept 32 pg/mL (19.9-100)
[2024-07-06 10:42] LABS: D Dimer 0.31 ug/mL (<0.48)
[2024-07-06 11:09] LABS: Influenza A QL RT-PCR Negative (Negative); Influenza B QL RT-PCR Negative (Negative); RSV RNA, RT-PCR Negative (Negative); SARS-CoV-2 RNA PCR Negative (Negative)
[2024-07-06 13:00] LABS: Troponin I < 0.012 ng/mL (0.000-0.034)
--- NOTE | 2024-07-06 14:03 | PM.IMHP ---
H&P: HPI History of Present Illness Date/Time: 07/06/24 14:03 Chief Complaint: Chest Pain Narrative: 64 y/o M presents here with chest pain and exertional shortness of breath with PMH of hypertension and hyperlipidemia. The patient presents here from home for further evaluation of shortness of breath and chest pain. The patient originally sought care through [facility] who referred him to urgent care. Urgent care then refer the patient to the emergency department for further evaluation. He reports he has had ongoing intermittent chest pain for the past month. Pain is occurring with exertion, typically about 5 minutes, and is alleviated by rest. He describes chest pain as burning, across the top of his sternum, nonradiating, intermittent, lasts less than 5 minutes. Patient denies any significant cardiovascular history. Patient is not a smoker. Initial VS at presentation: 97.1? F, HR 75, R 18, 189/87, and 100% on RA. ED workup showed: No leukocytosis, no anemia, normal coags, D-dimer negative, no significant electrolyte derangements, creatinine 0.84 and normal GFR, initial troponin negative x2, and viral PCR negative. CXR showed mild atelectasis versus scarring in the left upper lung zone and left lower lung zone. Initial EKG showed sinus rhythm, rate 88, left axis deviation, incomplete LBBB, left ventricular hypertrophy and ST-T change, consider inferior infarct age indeterminate. Review of Systems Review of Systems: All systems reviewed & are unremarkable except as noted in HPI and below [facility] Past Medical History Medical History Hyperlipidemia Hypertension Social History Social History Smoking status: Never smoker Alcohol intake: never Substance use: never Substance use type: does not use Do You Feel Safe in your Home?: Yes Lack of Transportation: YES Lack of Food: Never True Current Housing: I Have Housing Concerned About Future Housing: No Difficulty Paying Gas/Electric Bills: No Difficulty Paying for Meds: No Currently Unemployed: No Education: High School Diploma/GED Difficulty w/ Childcare or Family Care: No Spiritual care concerns: No Meds Home Medications and Allergies Home Medications ?Medication ?Instructions ?Recorded ?Confirmed ?Type atorvastatin 80 mg tablet 80 mg PO QPM 07/06/24 07/06/24 History lisinopril 10 1 tablet PO QPM 07/06/24 07/06/24 History mg-hydrochlorothiazide 12.5 mg tablet Allergies Allergy/AdvReac Type Severity Reaction Status Date / Time No Known Allergies Allergy Unverified 07/06/24 13:47 Vital Signs Vital Signs - 24 hr 07/06/24 09:20 07/06/24 09:27 07/06/24 09:30 Temperature 97.1 F L Pulse Rate 75 92 Respiratory Rate 18 27 H 20 Blood Pressure 189/87 H Pulse Oximetry 100 97 Oxygen Delivery Room Air 07/06/24 09:30 07/06/24 09:37 07/06/24 09:51 Temperature Pulse Rate 104 H 91 81 Respiratory Rate 23 H 21 H 24 H Blood Pressure 162/92 H Pulse Oximetry 99 Oxygen Delivery 07/06/24 09:52 07/06/24 10:00 07/06/24 10:01 Temperature Pulse Rate 71 89 83 Respiratory Rate 23 H 24 H 29 H Blood Pressure 174/98 H 158/101 H Pulse Oximetry 99 94 96 Oxygen Delivery 07/06/24 10:15 07/06/24 10:16 07/06/24 10:30 Temperature Pulse Rate Respiratory Rate Blood Pressure 168/102 H Pulse Oximetry 99 98 93 Oxygen Delivery 07/06/24 10:31 07/06/24 10:45 07/06/24 10:46 Temperature Pulse Rate Respiratory Rate Blood Pressure 149/87 H 134/84 Pulse Oximetry 98 95 93 Oxygen Delivery 07/06/24 11:00 07/06/24 11:01 07/06/24 11:15 Temperature Pulse Rate Respiratory Rate Blood Pressure 138/84 Pulse Oximetry 97 97 95 Oxygen Delivery 07/06/24 11:16 07/06/24 11:30 07/06/24 11:31 Temperature Pulse Rate Respiratory Rate Blood Pressure 136/76 136/85 Pulse Oximetry 97 95 95 Oxygen Delivery 07/06/24 13:46 Temperature Pulse Rate 67 Respiratory Rate 20 Blood Pressure 122/75 Pulse Oximetry 98 Oxygen Delivery Exam Const: General: comfortable and no acute distress Other: , male, nontoxic appearance HENMT: Face/Nose/Sinus: Normal nares present Mouth: Yes moist mucous membranes Eyes: General: appearance normal, both eyes and all related structures Sclera: sclerae normal Pupils: Equal, round and reactive pupils present EOM: EOMs intact bilaterally Resp: Effort & Inspection: normal respiratory effort Auscultation: clear to auscultation bilaterally Cardio: Rate: regular rate Rhythm: regular rhythm Other: S1-S2 present without murmur, rub, ectopy GI: Other: Abdomen soft, nondistended, nontender. Normoactive bowel sounds in all quadrants. Skin: General skin exam: normal color and no rashes or lesions noted Wounds: no wounds Neuro: Speech: normal speech Motor exam (neuro): 5/5 motor strength present throughout Sensory Exam: normal sensation Other: A&Ox4 Extrem: General: normal to inspection Psych: Mental Status: mental status grossly normal Affect: normal affect Other: Fair insight and judgment, pleasant H&P: Results Labs Labs: Short CBC 07/06/24 Range/Units 09:37 WBC 7.3 (4.5-10.0) K/mm3 Hgb 17.2 (14.0-18.0) g/dL Hct 49.9 (42.0-52.0) % Plt Count 284 (150-375) k/mm3 BMP 07/06/24 09:37 Sodium 142 Potassium 3.9 Chloride 101 Carbon Dioxide 26 BUN 19 Creatinine 0.84 Glucose 116 H Calcium 10.0 Cardiac Enzymes 07/06/24 07/06/24 Range/Units 09:37 12:29 Troponin I < 0.012 < 0.012 (0.000-0.034) ng/mL Liver Function 07/06/24 Range/Units 09:37 Total Bilirubin 1.0 (0.2-1.3) mg/dL AST 27 (17-59) U/L ALT 42 (6-50) U/L Alkaline Phosphatase 124 (38-126) U/L Albumin 5.3 H (3.5-5.1) g/dL Assessment and Plan Assessment and plan (1) Chest pain: Qualifiers: Chest pain type: unspecified Qualified Code(s): R07.9 - Chest pain, unspecified Code(s): R07.9 - Chest pain, unspecified Status: Acute Assessment and Plan: - EKG, initial: sinus rhythm, rate 88, left axis deviation, incomplete LBBB, left ventricular hypertrophy and ST-T change, consider inferior infarct age indeterminate. - CXR: Mild atelectasis versus scarring in left upper lung zone and left lower lung zone. - Troponin:<0.012 x3 - ASA 324 and SL nitro PRN - cardiology consulted, awaiting rec - add lipid panel and TSH - no previous echo or stress test on file - telemetry monitoring (2) Hypertension: Qualifiers: Hypertension type: primary hypertension Qualified Code(s): I10 - Essential (primary) hypertension Code(s): I10 - Essential (primary) hypertension Status: Chronic Assessment and Plan: - chronic, currently 122/75 - continue home medications: Lisinopril-hydrochlorothiazide 10-12.5 mg daily - monitor Plan Diet: Heart healthy GI Prophylaxis: Not currently indicated DVT Prophylaxis: SCDs Lines: Peripheral Code Status: Full code Quality VTE Prophylaxis VTE prophylaxis: mechanical ordered Hospitalist MIPS Advance Care Plan I have confirmed that the patient's Advanced Care Plan is present, code status is documented, or surrogate decision maker is listed in patient medical record.: Yes Medication Reconciliation I have utilized all available resources to obtain, update and review the patients current medications (includes all prescriptions, OTC, herbals, cannabis, and nutritional supplements).: Yes
[2024-07-06] MEDS: ASPIRIN 81 MG CHEWABLE TABLET 324 MG PO (14:38)
[2024-07-06 17:52] LABS: Troponin I < 0.012 ng/mL (0.000-0.034)
--- NOTE | 2024-07-06 18:22 | PC.NURSE ---
Pt was admitted to the floor via w/c. Pt assisted into gown and in bed. Pt A&O4. Voiced no complaints or concerns at this time. Skin and head to toe assessment completed and documented. Personal items and call light in reach. Will continue to monitor. DAPHNEY Gore
--- NOTE | 2024-07-06 18:44 | PC.NURSE ---
On 07/06/24, the LP RN, Jannie Sher, provided care and completed [facility] documentation on this patient. I have reviewed the LP RN's documentation and agree with the findings.
[2024-07-06] MEDS: hydroCHLOROthiazide 12.5 MG CAPSULE PO (20:26)
[2024-07-06] MEDS: lisinopriL 10 MG TABLET PO (20:26)
[2024-07-07] VITALS (17 sets, daily range): BP systolic 110–135; BP diastolic 67–89; PULSE 64–99; RESP 12–24; TEMP 36.2–36.8; O2SAT 95–97
[2024-07-07 05:39] LABS: Basophils Absolute Auto 0.1 K/mm3 (0.0-0.1); Eosinophils Absolute Auto 0.3 K/mm3 (0-0.3); Eosinophils Percent Auto 4.3 % (0-4.4); Hematocrit 46.7 % (42.0-52.0); Hemoglobin 15.7 g/dL (14.0-18.0); Immature Granulocyte Absolute 0.01 K/mm3 (0.00-0.031); Immature Granulocyte Percent A 0.2 % (0-0.5); Lymphocytes Absolute Auto 1.61 K/mm3 (0.9-3.2); Lymphocytes Percent Auto 27.4 % (18.3-44.2); Mean Corpuscular HGB Conc 33.6 g/dl (32-36); Mean Corpuscular Hemoglobin 31.3 pg (26-34); Mean Corpuscular Volume 93.2 fl (80-100); Mean Platelet Volume 10.8 fl (7.4-10.4); Monocytes Absolute Auto 0.5 K/mm3 (0.1-0.6); Monocytes Percent Auto 8.2 % (2.6-8.5); Neutrophils Absolute Auto 3.5 K/mm3 (1.3-6.7); Neutrophils Percent Auto 58.9 % (45.5-73.1); Platelet Count Result 248 k/mm3 (150-375); Red Blood Count 5.01 M/mm3 (4.6-6.20); Red Cell Distribution Width 11.9 % (11.5-14.5); White Blood Count 5.9 K/mm3 (4.5-10.0)
[2024-07-07 05:46] LABS: Anion Gap 12 mmol/L (4-12); Blood Urea Nitrogen 18 mg/dL (9-20); Calcium 9.3 mg/dL (8.4-10.2); Carbon Dioxide 25 mmol/L (22-30); Chloride 102 mmol/L (98-107); Cholesterol 187 mg/dL (0-200); Estimated CRCL calculation 88 ml/min; Estimated Glomerular Filt Rate > 60; Glucose 109 mg/dL (65-110); Potassium 3.7 mmol/L (3.4-5.0); Sodium 139 mmol/L (137-145); Triglycerides 235 mg/dL (<150)
[2024-07-07 05:47] LABS: HDL Direct 27 mg/dL
[2024-07-07 05:57] LABS: LDL Cholesterol Direct 98 mg/dL
[2024-07-07] MEDS: ASPIRIN 81 MG CHEWABLE TABLET PO (09:45)
--- NOTE | 2024-07-07 11:18 | PM.IMPN ---
Progress Note: A&P Assessment and Plan (1) Chest pain: Qualifiers: Chest pain type: unspecified Qualified Code(s): R07.9 - Chest pain, unspecified Code(s): R07.9 - Chest pain, unspecified Status: Acute Assessment and Plan: - EKG, initial: sinus rhythm, rate 88, left axis deviation, incomplete LBBB, left ventricular hypertrophy and ST-T change, consider inferior infarct age indeterminate. - CXR: Mild atelectasis versus scarring in left upper lung zone and left lower lung zone. - Troponin:<0.012 x3 LDL 98, TSH wnl continue Aspirin ECHO and stress test ordered awaiting cardiology eval (2) Hypertension: Qualifiers: Hypertension type: primary hypertension Qualified Code(s): I10 - Essential (primary) hypertension Code(s): I10 - Essential (primary) hypertension Status: Chronic Assessment and Plan: - chronic, currently 122/75 - continue home medications: Lisinopril-hydrochlorothiazide 10-12.5 mg daily - monitor Plan Diet: Heart healthy GI Prophylaxis: Not currently indicated DVT Prophylaxis: SCDs Lines: Peripheral Code Status: Full code Subjective Date/time seen: 07/07/24 11:18 Interval history: Comfortable at bedside noted chest pain only with exertion Review of Systems Review of Systems: All systems reviewed & are unremarkable except as noted in HPI and below Exam Const: General: comfortable and no acute distress Other: , male, nontoxic appearance HENMT: Face/Nose/Sinus: Normal nares present Mouth: Yes moist mucous membranes Eyes: General: appearance normal, both eyes and all related structures Sclera: sclerae normal Pupils: Equal, round and reactive pupils present EOM: EOMs intact bilaterally Resp: Effort & Inspection: normal respiratory effort Auscultation: clear to auscultation bilaterally Cardio: Rate: regular rate Rhythm: regular rhythm Other: S1-S2 present without murmur, rub, ectopy GI: Other: Abdomen soft, nondistended, nontender. Normoactive bowel sounds in all quadrants. Skin: General skin exam: normal color and no rashes or lesions noted Wounds: no wounds Neuro: Cranial nerves: Yes Equal, round and reactive pupils present Speech: normal speech Motor exam (neuro): 5/5 motor strength present throughout Sensory Exam: normal sensation Other: A&Ox4 Extrem: General: normal to inspection Psych: Mental Status: mental status grossly normal Affect: normal affect Other: Fair insight and judgment, pleasant Objective Data Vital Signs Vital Signs: Vital Signs - 24 hr 07/06/24 11:30 07/06/24 11:31 07/06/24 12:00 Temperature Pulse Rate 83 Respiratory Rate 23 H Blood Pressure 136/85 132/96 H Pulse Oximetry 95 95 95 07/06/24 12:01 07/06/24 12:15 07/06/24 12:16 Temperature Pulse Rate 82 79 84 Respiratory Rate 20 24 H 23 H Blood Pressure 137/84 146/78 H Pulse Oximetry 98 95 98 07/06/24 12:30 07/06/24 12:31 07/06/24 12:46 Temperature Pulse Rate 71 75 86 Respiratory Rate 23 H 20 25 H Blood Pressure 110/74 119/75 Pulse Oximetry 97 98 96 07/06/24 13:00 07/06/24 13:01 07/06/24 13:16 Temperature Pulse Rate 75 79 66 Respiratory Rate 25 H 24 H 25 H Blood Pressure 121/75 109/89 Pulse Oximetry 97 97 95 07/06/24 13:30 07/06/24 13:31 07/06/24 13:45 Temperature Pulse Rate 75 73 77 Respiratory Rate 25 H 15 23 H Blood Pressure 121/94 H Pulse Oximetry 98 100 96 07/06/24 13:46 07/06/24 13:46 07/06/24 14:01 Temperature Pulse Rate 67 72 64 Respiratory Rate 20 17 21 H Blood Pressure 122/75 122/75 125/80 Pulse Oximetry 98 100 97 07/06/24 14:15 07/06/24 14:16 07/06/24 14:31 Temperature Pulse Rate 69 77 63 Respiratory Rate 15 16 21 H Blood Pressure 136/100 H 119/67 Pulse Oximetry 100 96 07/06/24 14:45 07/06/24 14:46 07/06/24 15:01 Temperature Pulse Rate 69 69 62 Respiratory Rate 25 H 22 H 30 H Blood Pressure 131/82 119/62 Pulse Oximetry 97 95 98 07/06/24 16:00 07/06/24 18:00 07/06/24 20:00 Temperature Pulse Rate 70 86 66 Respiratory Rate Blood Pressure Pulse Oximetry 07/06/24 20:56 07/06/24 22:00 07/07/24 00:00 Temperature 97.1 F L Pulse Rate 59 L 82 79 Respiratory Rate 18 Blood Pressure 128/82 Pulse Oximetry 96 07/07/24 00:24 07/07/24 02:00 07/07/24 04:00 Temperature 97.1 F L Pulse Rate 70 74 65 Respiratory Rate 18 Blood Pressure 124/86 Pulse Oximetry 96 07/07/24 04:31 07/07/24 08:00 Temperature 97.3 F L 97.9 F Pulse Rate 67 70 Respiratory Rate 18 16 Blood Pressure 125/75 112/70 Pulse Oximetry 96 97 Intake/Output Intake/Output: Intake & Output 07/04/24 07/05/24 07/06/24 07/07/24 23:59 23:59 23:59 23:59 Intake Total 540 1100 Output Total 600 Balance 540 500 Meds/Results Medications: Active Medications Generic Name Dose Route Start Last Admin Trade Name Freq PRN Reason Stop Dose Admin Acetaminophen 650 mg 07/06/24 14:16 Acetaminophen 325 Mg Tablet PO Q6H PRN Mild Pain (1-3) or Fever Aspirin 81 mg 07/07/24 08:00 07/07/24 09:45 Aspirin 81 Mg Chewable Tablet PO 81 mg DAILY@0800 [facility] Administration Atorvastatin Calcium 80 mg 07/07/24 18:00 Atorvastatin 40 Mg Tablet PO QPM RITA Hydrochlorothiazide 12.5 mg 07/06/24 18:00 07/06/24 20:26 Hydrochlorothiazide 12.5 Mg Capsule PO 12.5 mg QPM RITA Administration Lisinopril 10 mg 07/06/24 18:00 07/06/24 20:26 Lisinopril 10 Mg Tablet PO 10 mg QPM [facility] Administration Nitroglycerin 0.4 mg 07/06/24 14:13 Nitroglycerin Sl 0.4 Mg Tablet SUBLINGUAL Q5MIN PRN Chest Pain Ondansetron HCl 4 mg 07/06/24 14:16 Ondansetron Inj 4 Mg/2 Ml Vial IV PUSH Q6H PRN Nausea And Vomiting Radiology Results: ITS Impressions Chest X-Ray 07/06/24 09:51 IMPRESSION: 1. Mild atelectasis versus scarring in left upper lung zone and left lower lung zone. Labs Labs: Laboratory Results - last 24 hr 07/06/24 07/06/24 07/07/24 12:29 17:23 04:41 WBC 5.9 RBC 5.01 Hgb 15.7 Hct 46.7 MCV 93.2 MCH 31.3 MCHC 33.6 RDW 11.9 Plt Count 248 MPV 10.8 H Immature Gran % (Auto) 0.2 Neut % (Auto) 58.9 Lymph % (Auto) 27.4 [place] % (Auto) 8.2 Eos % (Auto) 4.3 Baso % (Auto) 1.0 Lymph # (Auto) 1.61 [place] # (Auto) 0.5 Eos # (Auto) 0.3 Baso # (Auto) 0.1 Abs Immat Gran (auto) 0.01 Absolute Neuts (auto) 3.5 Absolute Nucleated RBC 0.000 Nucleated RBC % 0.0 Sodium Potassium Chloride Carbon Dioxide Anion Gap BUN Creatinine Estim Creat Clear Calc Estimated GFR Glucose Calcium Troponin I < 0.012 < 0.012 Triglycerides Cholesterol LDL Cholesterol Direct HDL Direct TSH (Reflex) 1.710 07/07/24 04:42 WBC RBC Hgb Hct MCV MCH MCHC RDW Plt Count MPV Immature Gran % (Auto) Neut % (Auto) Lymph % (Auto) [place] % (Auto) Eos % (Auto) Baso % (Auto) Lymph # (Auto) [place] # (Auto) Eos # (Auto) Baso # (Auto) Abs Immat Gran (auto) Absolute Neuts (auto) Absolute Nucleated RBC Nucleated RBC % Sodium 139 Potassium 3.7 Chloride 102 Carbon Dioxide 25 Anion Gap 12 BUN 18 Creatinine 0.70 Estim Creat Clear Calc 88 Estimated GFR > 60 Glucose 109 Calcium 9.3 Troponin I Triglycerides 235 H Cholesterol 187 LDL Cholesterol Direct 98 HDL Direct 27 TSH (Reflex) Quality VTE Prophylaxis VTE prophylaxis: mechanical ordered
[2024-07-07 13:06] LABS: Hemoglobin A1C 6.1 % (<5.7)
--- NOTE | 2024-07-07 13:43 | P.CONCA_ITS ---
Assessment and Plan Assessment and plan (1) Chest pain, exertional: Code(s): R07.9 - Chest pain, unspecified Status: Acute (2) Hypertension: Qualifiers: Hypertension type: primary hypertension Qualified Code(s): I10 - Essential (primary) hypertension Code(s): I10 - Essential (primary) hypertension Status: Chronic (3) Hyperlipidemia: Code(s): E78.5 - Hyperlipidemia, unspecified Status: Acute Plan 1. Typical chest pain 2. Hypertension 3. Hyperlipidemia PLAN: Having typical chest pain. Risk factors for heart disease including hypertension, hyperlipidemia. Discussed stress testing vs cardiac catheterization with the patient and risks vs benefits of both options. Given typical chest pain, risk factors will proceed directly to cardiac catheterization for definitive evaluation. NPO at midnight. LHC on 07/08. Continue ASA 81mg once daily. Continue high intensity statin. Echocardiogram ordered and pending. Recommendations and plan discussed with Hospitalist. History of Present Illness History of Present Illness Consult date/time: 07/07/24 13:43 Requesting physician: Priscila Valverde APRN Consult reason: chest pain Reason For Visit: Exertional angina, CP Narrative: We are consulted for chest pain. This is a 64 year old male with hypertension and hyperlipidemia who has been having exertional chest pain for the past 6 months. Occurs after about 5 minutes with exertion. Relieves with rest. Had it when he was shoveling snow as well. Pain is diffuse across his chest. No radiation of pain. No clear family history of heart disease. Denies tobacco use. EKG shows sinus rhythm, ILBBB, cannot rule out old inferior infarct. Troponins are negative. Review of Systems 2 Review of Systems: All systems reviewed & are unremarkable except as noted in HPI and below (HPI) [facility] Past Medical History Medical History (Updated 07/07/24 @ 13:46 by Hilton Palomo MD) Hyperlipidemia Hypertension Social History Social History Smoking status: Never smoker Alcohol intake: never Substance use: never Substance use type: does not use Do You Feel Safe in your Home?: Yes Lack of Transportation: YES Lack of Food: Never True Current Housing: I Have Housing Concerned About Future Housing: No Difficulty Paying Gas/Electric Bills: No Difficulty Paying for Meds: No Currently Unemployed: No Education: High School Diploma/GED Difficulty w/ Childcare or Family Care: No Spiritual care concerns: No Meds Home Medications and Allergies Home Medications ?Medication ?Instructions ?Recorded ?Confirmed ?Type atorvastatin 80 mg tablet 80 mg PO QPM 07/06/24 07/06/24 History lisinopril 10 1 tablet PO QPM 07/06/24 07/06/24 History mg-hydrochlorothiazide 12.5 mg tablet Allergies Allergy/AdvReac Type Severity Reaction Status Date / Time No Known Allergies Allergy Unverified 07/06/24 13:47 Vital Signs Vital Signs - 24 hr 07/06/24 13:45 07/06/24 13:46 07/06/24 13:46 Temperature Pulse Rate 77 67 72 Respiratory Rate 23 H 20 17 Blood Pressure 122/75 122/75 Pulse Oximetry 96 98 100 07/06/24 14:01 07/06/24 14:15 07/06/24 14:16 Temperature Pulse Rate 64 69 77 Respiratory Rate 21 H 15 16 Blood Pressure 125/80 136/100 H Pulse Oximetry 97 100 07/06/24 14:31 07/06/24 14:45 07/06/24 14:46 Temperature Pulse Rate 63 69 69 Respiratory Rate 21 H 25 H 22 H Blood Pressure 119/67 131/82 Pulse Oximetry 96 97 95 07/06/24 15:01 07/06/24 16:00 07/06/24 18:00 Temperature Pulse Rate 62 70 86 Respiratory Rate 30 H Blood Pressure 119/62 Pulse Oximetry 98 07/06/24 20:00 07/06/24 20:56 07/06/24 22:00 Temperature 36.2 C L Pulse Rate 66 59 L 82 Respiratory Rate 18 Blood Pressure 128/82 Pulse Oximetry 96 07/07/24 00:00 07/07/24 00:24 07/07/24 02:00 Temperature 36.2 C L Pulse Rate 79 70 74 Respiratory Rate 18 Blood Pressure 124/86 Pulse Oximetry 96 07/07/24 04:00 07/07/24 04:31 07/07/24 08:00 Temperature 36.3 C L 36.6 C Pulse Rate 65 67 70 Respiratory Rate 18 16 Blood Pressure 125/75 112/70 Pulse Oximetry 96 97 07/07/24 08:00 07/07/24 10:00 07/07/24 11:45 Temperature 36.4 C Pulse Rate 78 94 88 Respiratory Rate 12 Blood Pressure 123/89 Pulse Oximetry 96 Exam 2 Const: General: comfortable and no acute distress HENMT: Mouth: Yes moist mucous membranes Eyes: General: appearance normal, both eyes and all related structures S clera: sclerae normal Resp: Effort & Inspection: normal respiratory effort Cardio: Rate: regular rate Rhythm: regular rhythm Heart sounds: no murmurs Neuro: Speech: normal speech Psych: Mental Status: mental status grossly normal Affect: normal affect Results Labs and Meds 07/07/24 04:41 07/07/24 04:42 Lab results: Cardiac Enzymes 07/06/24 Range/Units 17:23 Troponin I < 0.012 (0.000-0.034) ng/mL Lipids 07/07/24 Range/Units 04:42 Triglycerides 235 H (<150) mg/dL Cholesterol 187 (0-200) mg/dL CBC 07/07/24 Range/Units 04:41 WBC 5.9 (4.5-10.0) K/mm3 RBC 5.01 (4.6-6.20) M/mm3 Hgb 15.7 (14.0-18.0) g/dL Hct 46.7 (42.0-52.0) % Plt Count 248 (150-375) k/mm3 Lymph # (Auto) 1.61 (0.9-3.2) K/mm3 [place] # (Auto) 0.5 (0.1-0.6) K/mm3 Eos # (Auto) 0.3 (0-0.3) K/mm3 Baso # (Auto) 0.1 (0.0-0.1) K/mm3 Comprehensive Metabolic Panel 07/07/24 Range/Units 04:42 Sodium 139 (137-145) mmol/L Potassium 3.7 (3.4-5.0) mmol/L Chloride 102 (98-107) mmol/L Carbon Dioxide 25 (22-30) mmol/L BUN 18 (9-20) mg/dL Creatinine 0.70 (0.7-1.3) mg/dL Glucose 109 (65-110) mg/dL Calcium 9.3 (8.4-10.2) mg/dL Intake and Output 07/06/24 07/07/24 07/07/24 23:59 07:59 15:59 Intake Total 540 500 600 Output Total 600 Balance 540 -100 600 Intake: Oral 540 500 600 Output: Urine 600 Other: # Unmeasured Voids 2 Patient Weight 07/07/24 23:59 Weight 78.8 kg
[2024-07-07] MEDS: hydroCHLOROthiazide 12.5 MG CAPSULE PO (17:45)
[2024-07-07] MEDS: ATORVASTATIN 40 MG TABLET 80 MG PO (17:45)
[2024-07-07] MEDS: lisinopriL 10 MG TABLET PO (17:45)
[2024-07-08] VITALS (27 sets, daily range): BP systolic 116–159; BP diastolic 70–98; PULSE 59–106; RESP 14–25; TEMP 36.4–36.8; O2SAT 90–100
--- NOTE | 2024-07-08 | ECHO_ITS ---
Patient Info Name: Olivier Gr Age: 64 years : 1960 Gender: Male Ht: 67 in Wt: 173 lbs BSA: 1.94 m2 HR: 75 bpm BP: 126 / 70 mmHg Heart Rhythm: Sinus Rhythm Technical Quality: Fair Exam Date: 07/08/2024 9:23 AM Exam Location: Echo Lab Patient Status: Inpatient Admit Date: 07/06/2024 Staff Ordering Physician: Tree Hansen MD Property Maintenance Supervisor: Barbie Bonilla RDCS Attending Provider: Vish Coffman MD Exam Type: CA echo dop color flow w con Study Info Indications R07.9 - Chest pain, unspecified Complete two-dimensional, color flow and Doppler transthoracic echocardiogram is performed with contrast to opacify the left ventricle and to improve the deliniation of the left ventricle endocardial borders. Contrast/Agitated Saline Contrast/Ag. Saline: Definity Amount: 2.00 ml Administered By: Barbie Bonilla RDCS Existing IV Access: Yes IV Access Condition: patent with no signs of infiltration Summary 1. There is normal biventricular systolic function. 2. There is no significant valvular disease. Left Ventricle The left ventricle is normal in size and systolic function. There is mildly thickened ventricular dumont. The left ventricular ejection fraction is visually estimated to be 60-65%. Right Ventricle The right ventricle is normal in size and systolic function. Left Atria Left atrium is normal size. Right Atria The right atrium is normal size. Atrial Septum The atrial septum is not well visualized. Aortic Valve The aortic valve is trileaflet and opens well. There is no aortic regurgitation. Pulmonic Valve The pulmonic valve is grossly normal. There is no color Doppler evidence of pulmonic valve regurgitation. Mitral Valve The mitral valve is normal. There is trace mitral regurgitation. Tricuspid Valve The tricuspid valve is normal. There is trace tricuspid regurgitation. Pericardium/Pleural There is no pericardial effusion. Inferior Vena Cava Inferior vena cava is not well visualized. Aorta The aortic root at the level of the sinus of Valsalva measures 3.2 cm in diameter. Left Ventricular Outflow Tract Name Value Normal LVOT 2D LVOT Diameter 2.23 cm LVOT Doppler LVOT Peak Gradient 3 mmHg LVOT Mean Gradient 1 mmHg LVOT VTI 16.28 cm LVOT VTI/AV VTI Ratio 0.85 LVOT Stroke Volume 63.68 ml LVOT CO 4.51 l/min LVOT CI 2.32 L/min/m2 Pulmonic Valve Name Value Normal RVOT Doppler RVOT Peak Gradient 4 mmHg PV Doppler PV Peak Gradient 6 mmHg Mitral Valve Name Value Normal MV Doppler MV Decel [place] 211.87 cm/s2 MV PHT 0 s MV Area (PHT) 2.92 cm2 4.00-5.00 MV Diastolic Function MV E Peak Velocity 55.09 cm/s MV A Peak Velocity 92.35 cm/s MV E/A 0.60 MV Decel Time 0 s MV Annular TDI MV E/e' (Septal) 5.48 <=8.00 MV E/e' (Lateral) 4.90 <=8.00 MV E/e' (Average) 5.19 Tricuspid Valve Name Value Normal TV Regurgitation Doppler TR Peak Velocity 221.84 cm/s TR Peak Gradient 20 mmHg Estimated PAP/RSVP RA Pressure 10 mmHg <=5 PA Systolic Pressure 30 mmHg <36 RV Systolic Pressure 30 mmHg <36 Aorta Name Value Normal Ascending Aorta Ao Root Diameter (MM) 3.24 cm Ao Root Diam Index (MM) 1.67 cm/m2 Aortic Valve Name Value Normal AV Doppler AV Peak Velocity 116.20 cm/s AV Peak Gradient 5 mmHg AV Mean Gradient 3 mmHg AV VTI 19.17 cm AV Area (Cont Eq VTI) 3.32 cm2 >=3.00 AV Area (Cont Eq Dez) 2.78 cm2 AV Regurgitation 2D LVOT Area 3.91 cm2 Ventricles Name Value Normal LV Dimensions 2D/MM IVS Diastolic Thickness (2D) 1.23 cm 0.60-1.00 LVID Diastole (2D) 5.02 cm 4.20-5.80 LVIW Diastolic Thickness (2D) 0.96 cm 0.60-1.00 LVID Systole (2D) 3.24 cm 2.50-4.00 LVOT Diameter 2.23 cm LV Mass (2D Cubed) 207.76 g 88.00-224.00 LV Mass Index (2D Cubed) 0.01 g/cm2 0.00-0.01 Relative Wall Thickness (2D) 0.38 LV Fractional Shortening/Ejection Fraction 2D/MM LV Fractional Shortening (2D) 35 % 25-43 LV EF (2D Teicholz) 65 % 52-72 LV Diastolic Volume (4C MOD) 74.84 ml LV EF (4C MOD) 61 % LV Diastolic Volume (2C MOD) 82.17 ml LV EF (2C MOD) 56 % LV Diastolic Volume (BP MOD) 80.49 ml 62.00-150.00 LV Diastolic Volume Index (BP MOD) 0.04 l/m2 0.03-0.07 LV Systolic Volume (BP MOD) 33.87 ml 21.00-61.00 LV Systolic Volume Index (BP MOD) 0.02 l/m2 0.01-0.03 LV EF (BP MOD) 58 % 52-72 LV Diastolic Length (4C) 7.48 cm LV Systolic Length (4C) 7.56 cm LV Stroke Volume (4C MOD) 45.75 ml Atria Name Value Normal LA Dimensions LA Dimension (MM) 4.02 cm 3.00-4.10 LA Volume (4C A-L) 58.17 ml LA Volume (BP A-L) 54.86 ml RA Dimensions RA Area (4C) 15.06 cm2 <=18.00 Report Signatures Electronically signed by Josef pritchard 07/08/2024 16:56
[2024-07-08 05:07] LABS: Basophils Absolute Auto 0.1 K/mm3 (0.0-0.1); Basophils Percent Auto 1.4 % (0.2-1.2); Eosinophils Absolute Auto 0.3 K/mm3 (0-0.3); Eosinophils Percent Auto 3.9 % (0-4.4); Hematocrit 46.6 % (42.0-52.0); Hemoglobin 15.7 g/dL (14.0-18.0); Immature Granulocyte Absolute 0.02 K/mm3 (0.00-0.031); Immature Granulocyte Percent A 0.3 % (0-0.5); Lymphocytes Absolute Auto 1.75 K/mm3 (0.9-3.2); Lymphocytes Percent Auto 27.5 % (18.3-44.2); Mean Corpuscular HGB Conc 33.7 g/dl (32-36); Mean Corpuscular Hemoglobin 31.4 pg (26-34); Mean Corpuscular Volume 93.2 fl (80-100); Mean Platelet Volume 10.6 fl (7.4-10.4); Monocytes Absolute Auto 0.5 K/mm3 (0.1-0.6); Monocytes Percent Auto 8.5 % (2.6-8.5); Neutrophils Absolute Auto 3.7 K/mm3 (1.3-6.7); Neutrophils Percent Auto 58.4 % (45.5-73.1); Platelet Count Result 246 k/mm3 (150-375); Red Cell Distribution Width 11.9 % (11.5-14.5); White Blood Count 6.4 K/mm3 (4.5-10.0)
[2024-07-08 05:29] LABS: Alanine Aminotransferase 33 U/L (6-50); Albumin Level 4.5 g/dL (3.5-5.1); Alkaline Phosphatase 91 U/L (38-126); Anion Gap 10 mmol/L (4-12); Aspartate Amino Transferase 20 U/L (17-59); Bilirubin,Total 0.8 mg/dL (0.2-1.3); Blood Urea Nitrogen 22 mg/dL (9-20); Calcium 9.5 mg/dL (8.4-10.2); Carbon Dioxide 29 mmol/L (22-30); Chloride 102 mmol/L (98-107); Estimated CRCL calculation 81 ml/min; Estimated Glomerular Filt Rate > 60; Glucose 111 mg/dL (65-110); Magnesium 2.1 mg/dL (1.6-2.3); Potassium 3.9 mmol/L (3.4-5.0); Sodium 141 mmol/L (137-145)
[2024-07-08] MEDS: ASPIRIN 81 MG ENTERIC TABLET PO (09:32)
[2024-07-08] MEDS: PERFLUTREN LIPID MICROSPHERES 1.5 ML VIAL DILUTED TO 10 ML TOTAL VOLUME IV PUSH (09:55)
--- NOTE | 2024-07-08 10:39 | P.SEDATION_ITS ---
Moderate Sedation Note-Pt Data Patient Data Allergies Allergy/AdvReac Type Severity Reaction Status Date / Time No Known Allergies Allergy Unverified 07/06/24 13:47 Home Medications ?Medication ?Instructions ?Recorded ?Confirmed ?Type atorvastatin 80 mg tablet 80 mg PO QPM 07/06/24 07/06/24 History lisinopril 10 1 tablet PO QPM 07/06/24 07/06/24 History mg-hydrochlorothiazide 12.5 mg tablet Current Medications: Active Medications Acetaminophen (Acetaminophen 325 Mg Tablet) 650 mg PO Q6H PRN PRN Reason: Mild Pain (1-3) or Fever Aspirin (Aspirin 81 Mg Enteric Tablet) 81 mg PO QAM [facility] Last Admin: 07/08/24 09:32 Dose: 81 mg Atorvastatin Calcium (Atorvastatin 40 Mg Tablet) 80 mg PO QPM [facility] Last Admin: 07/07/24 17:45 Dose: 80 mg Hydrochlorothiazide (Hydrochlorothiazide 12.5 Mg Capsule) 12.5 mg PO QPM [facility] Last Admin: 07/07/24 17:45 Dose: 12.5 mg Sodium Chloride (Normal Saline Iv) 500 mls @ 100 mls/hr IV CONT .Q5H [facility] Lisinopril (Lisinopril 10 Mg Tablet) 10 mg PO QPM [facility] Last Admin: 07/07/24 17:45 Dose: 10 mg Nitroglycerin (Nitroglycerin Sl 0.4 Mg Tablet) 0.4 mg SUBLINGUAL Q5MIN PRN PRN Reason: Chest Pain Ondansetron HCl (Ondansetron Inj 4 Mg/2 Ml Vial) 4 mg IV PUSH Q6H PRN PRN Reason: Nausea And Vomiting Perflutren Lipid Microsphere (Perflutren Lipid Microspheres 1.5 Ml Vial Diluted To 10 Ml Total Volume) 0 ml IV PUSH ONCE PRN; Protocol PRN Reason: adequate visualization Stop: 07/10/24 11:24 Sedation/Anesthesia: No previous sedation/anesthesia problems (including family history). [facility] Past Medical History Medical History (Updated 07/07/24 @ 13:46 by Hilton Palomo MD) Hyperlipidemia Hypertension Social History Social History Smoking status: Never smoker Alcohol intake: never Substance use: never Substance use type: does not use Do You Feel Safe in your Home?: Yes Lack of Transportation: YES Lack of Food: Never True Current Housing: I Have Housing Concerned About Future Housing: No Difficulty Paying Gas/Electric Bills: No Difficulty Paying for Meds: No Currently Unemployed: No Education: High School Diploma/GED Difficulty w/ Childcare or Family Care: No Spiritual care concerns: No Mod Sed Physical Exam Physical Exam Pre Procedural Exam: Normal: Lungs, Heart Rate and Heart Rhythm Hours since solid foods: 12 Hours since liquid intake: 12 Mallampati Classification: class II Internal Medicine - PN: Obj Da Vital Signs Vital Signs: Vital Signs - 24 hr 07/07/24 11:45 07/07/24 12:00 07/07/24 14:00 Temperature 36.4 C Pulse Rate 88 99 79 Respiratory Rate 12 Blood Pressure 123/89 Pulse Oximetry 96 07/07/24 15:56 07/07/24 16:00 07/07/24 18:00 Temperature 36.8 C Pulse Rate 68 66 78 Respiratory Rate 12 Blood Pressure 110/67 Pulse Oximetry 95 07/07/24 19:46 07/07/24 20:00 07/07/24 22:00 Temperature 36.6 C Pulse Rate 73 74 64 Respiratory Rate 24 H Blood Pressure 135/74 Pulse Oximetry 95 07/07/24 23:52 07/08/24 00:00 07/08/24 02:00 Temperature 36.6 C Pulse Rate 70 72 71 Respiratory Rate 20 Blood Pressure 130/68 Pulse Oximetry 95 07/08/24 04:00 07/08/24 05:01 07/08/24 06:00 Temperature 36.8 C Pulse Rate 59 L 65 75 Respiratory Rate 18 Blood Pressure 126/70 Pulse Oximetry 95 07/08/24 07:18 Temperature 36.4 C Pulse Rate 64 Respiratory Rate 16 Blood Pressure 135/74 Pulse Oximetry 100 Intake/Output Intake/Output: Intake & Output 07/05/24 07/06/24 07/07/24 07/08/24 23:59 23:59 23:59 23:59 Intake Total 540 1340 600 Output Total 1100 800 Balance 540 240 -200 Meds/Results Medications: Active Medications Generic Name Dose Route Start Last Admin Trade Name Freq PRN Reason Stop Dose Admin Acetaminophen 650 mg 07/06/24 14:16 Acetaminophen 325 Mg Tablet PO Q6H PRN Mild Pain (1-3) or Fever Aspirin 81 mg 07/08/24 09:00 07/08/24 09:32 Aspirin 81 Mg Enteric Tablet PO 81 mg QAM RITA Administration Atorvastatin Calcium 80 mg 07/07/24 18:00 07/07/24 17:45 Atorvastatin 40 Mg Tablet PO 80 mg QPM RITA Administration Hydrochlorothiazide 12.5 mg 07/06/24 18:00 07/07/24 17:45 Hydrochlorothiazide 12.5 Mg Capsule PO 12.5 mg QPM RITA Administration Sodium Chloride 500 mls @ 100 mls/hr 07/07/24 13:45 Normal Saline Iv IV CONT .Q5H RITA Lisinopril 10 mg 07/06/24 18:00 07/07/24 17:45 Lisinopril 10 Mg Tablet PO 10 mg QPM RITA Administration Nitroglycerin 0.4 mg 07/06/24 14:13 Nitroglycerin Sl 0.4 Mg Tablet SUBLINGUAL Q5MIN PRN Chest Pain Ondansetron HCl 4 mg 07/06/24 14:16 Ondansetron Inj 4 Mg/2 Ml Vial IV PUSH Q6H PRN Nausea And Vomiting Perflutren Lipid Microsphere 0 ml 07/07/24 11:24 Perflutren Lipid Microspheres 1.5 Ml Vial Diluted To 10 Ml Total Volume IV PUSH 07/10/24 11:24 ONCE PRN adequate visualization Protocol Radiology Results: ITS Impressions Chest X-Ray 07/06/24 09:51 IMPRESSION: 1. Mild atelectasis versus scarring in left upper lung zone and left lower lung zone. Labs 07/08/24 04:34 07/08/24 04:34 Labs: Laboratory Results - last 24 hr 07/07/24 07/08/24 04:36 04:34 WBC 6.4 RBC 5.00 Hgb 15.7 Hct 46.6 MCV 93.2 MCH 31.4 MCHC 33.7 RDW 11.9 Plt Count 246 MPV 10.6 H Immature Gran % (Auto) 0.3 Neut % (Auto) 58.4 Lymph % (Auto) 27.5 Emery % (Auto) 8.5 Eos % (Auto) 3.9 Baso % (Auto) 1.4 H Lymph # (Auto) 1.75 Emery # (Auto) 0.5 Eos # (Auto) 0.3 Baso # (Auto) 0.1 Abs Immat Gran (auto) 0.02 Absolute Neuts (auto) 3.7 Absolute Nucleated RBC 0.000 Nucleated RBC % 0.0 Sodium 141 Potassium 3.9 Chloride 102 Carbon Dioxide 29 Anion Gap 10 BUN 22 H Creatinine 0.77 Estim Creat Clear Calc 81 Estimated GFR > 60 Glucose 111 H Hemoglobin A1c 6.1 H Calcium 9.5 Magnesium 2.1 Total Bilirubin 0.8 AST 20 ALT 33 Alkaline Phosphatase 91 Total Protein 8.0 Albumin 4.5 ASA Classification/Sedation ASA Classification/Sedation ASA Class: III Emergent: No Risks: Risks, benefits and alternatives explained and patient/family accepted plan for sedation. Patient re-evaluated immediately prior to sedation.
--- NOTE | 2024-07-08 10:39 | WPDHPUPDATE1 ---
History and Physical Update Update Date/Time: 07/08/24 10:39 History and Physical has been reviewed, including an updated exam of the patient. There are NO changes in the patient's condition. Risks, benefits, and alternatives have been discussed and questions answered. Patient agrees to proceed with procedure.
[2024-07-08 11:34] LABS: Activated Clotting Time 170 SEC (74-137)
--- NOTE | 2024-07-08 11:54 | WPDCARDPROC ---
Cardiac Cath Procedure Note Date of procedure:: 07/08/24 Performing physician:: CATHETERIZATION LABORATORY REPORT Procedure Date: 07/08/2024 Referring Physician: Dr. Hansen Anesthesia: Versed and Fentanyl were ordered and given in my presence at 1050, procedure ended at 1126. Supervision of nurse, Ludy Luz monitored moderate sedation with 2mg Versed and 200mcg Fentanyl was provided for 36 minutes. Pre-op Diagnosis: Angina Post-op Diagnosis: Angina Procedure(s): Left heart catheterization with coronary angiography Access Site: Right radial artery Right common femoral artery Brief History and Clinical Indications: 64-year-old man presents with anginal symptoms care to define his coronary anatomy. All risks, benefits and alternatives to left heart catheterization with or without percutaneous coronary intervention was discussed at length with the patient. Risk of complications including but not limited to bleeding, infection, arrhythmia, stroke, worsening kidney function, blood loss, groin hematoma, limb loss, emergency coronary artery bypass grafting, and even were discussed with the patient and all questions were answered. The patient understood and wished to proceed. Time out called, patient name, date of , medical record number, allergies, procedure performed, identify Hydraulic Jack Mechanic, patient and staff member concurred with accurate data, procedure carried on. Findings: LEFT HEART CATHETERIZATION FINDINGS: 1. Left main: The left main coronary artery is widely patent without any significant obstructive disease. 2. Left anterior descending: The LAD is a large caliber vessel that provides 3 diagonal branches. The diagonal branches are free of angiographic high-grade stenosis. The proximal to mid LAD has a 90-95% stenosis. 3. Left circumflex: The left circumflex artery and the main marginal branches have mild luminal irregularities without any significant obstructive angiographic disease. The AV groove branch provides [id number] collaterals. 4. Right coronary artery: The RCA is occluded at its ostium. 5. Left ventricle: A. End-diastolic pressure 27 mmHg. B. LV gram deferred. C. No significant gradient across aortic valve on catheter pullback. 6. Opening AO pressure 136/88 and closing AO pressure 153/93 7. 20-30% stenosis of the right common femoral artery. The visualized portions of right external iliac artery is free of angiographic high-grade stenosis. Description of Procedure: Informed consent signed and placed in the chart. Patient transferred to roofing laborer room. Prepped and draped in usual sterile fashion. 2% lidocaine injected subcutaneously in right wrist area. 22-gauge venipuncture catheter used to access the right radial artery with the Seldinger technique. 6-FR slender sheath placed in right radial artery. Nitroglycerin 200mcg, Verapamil 2.5mg, and Heparin 5000U was given intraarterial through the sheath. J wire advanced under fluoroscopy. Given significant tortuosity of the aorta, neither day TIG nor the JR4 diagnostic catheters were able to engage the coronary arteries successfully. At this time, procedure was converted to femoral access. 2% lidocaine was injected subcutaneously in the right groin. Under under ultrasound and fluoroscopy guidance, a micropuncture needle was advanced into the right common femoral artery and exchanged out for a micropuncture sheath that was exchanged out for a 5 [place] arterial sheath. 5F JL4 diagnostic catheter engaged the LMCA. 5F JR4 diagnostic catheter engaged the RCA. 5F Pigtail catheter was advanced into the left ventricle where LVEDP was measured and pullback was performed across the aortic valve. All equipment was removed under fluoroscopy. Right iliofemoral angiogram was performed. Manual pressure was used to achieve hemostasis of the right common femoral artery. A TR band was used to achieve hemostasis of the right radial artery. Assessment: Two vessel CAD Post Operative Condition: Stable No significant blood loss Disposition: Floor Plan: Continue aggressive medical therapy. Referral to outpatient CT surgery for evaluation of coronary artery bypass grafting Josfe Concepcion Interventional Cardiology
--- NOTE | 2024-07-08 12:20 | IVDEFINITY ---
Prior to administration of IV Definity the patient was educated on the risks and benefits of the imaging enhancing agent including potential adverse side effects. The patient verbalized understanding. Allergies were verified. No exclusion criteria were identified and at least one of the following inclusion criteria were met: 1) physician request, 2) patient technically difficult to image (per the [place] [employer] guidelines of two or more segments not discernable within the apical view), or 3) questionable left ventricular function. ?
--- NOTE | 2024-07-08 13:13 | P.PNIM_ITS ---
Progress Note: A&P Assessment and Plan (1) Chest pain: Qualifiers: Chest pain type: unspecified Qualified Code(s): R07.9 - Chest pain, unspecified Code(s): R07.9 - Chest pain, unspecified Status: Acute Assessment and Plan: - EKG, initial: sinus rhythm, rate 88, left axis deviation, incomplete LBBB, left ventricular hypertrophy and ST-T change, consider inferior infarct age indeterminate. - CXR: Mild atelectasis versus scarring in left upper lung zone and left lower lung zone. - Troponin:<0.012 x3 LDL 98, TSH wnl continue Aspirin ECHO and stress test ordered awaiting cardiology eval (2) Hypertension: Qualifiers: Hypertension type: primary hypertension Qualified Code(s): I10 - Essential (primary) hypertension Code(s): I10 - Essential (primary) hypertension Status: Chronic Assessment and Plan: - chronic, currently 122/75 - continue home medications: Lisinopril-hydrochlorothiazide 10-12.5 mg daily - monitor Plan Diet: Heart healthy GI Prophylaxis: Not currently indicated DVT Prophylaxis: SCDs Lines: Peripheral Code Status: Full code Subjective Date/time seen: 07/08/24 13:13 Interval history: Comfortable at bedside noted chest pain only with exertion Objective Data Vital Signs Vital Signs: Vital Signs - 24 hr 07/07/24 14:00 07/07/24 15:56 07/07/24 16:00 Temperature 36.8 C Pulse Rate 79 68 66 Pulse Rate [Right Pedal (Dorsalis Pedis) Palpation] Pulse Rate [Right Radial Palpation] Respiratory Rate 12 Blood Pressure 110/67 Pulse Oximetry 95 Oxygen Delivery 07/07/24 18:00 07/07/24 19:46 07/07/24 20:00 Temperature 36.6 C Pulse Rate 78 73 74 Pulse Rate [Right Pedal (Dorsalis Pedis) Palpation] Pulse Rate [Right Radial Palpation] Respiratory Rate 24 H Blood Pressure 135/74 Pulse Oximetry 95 Oxygen Delivery 07/07/24 22:00 07/07/24 23:52 07/08/24 00:00 Temperature 36.6 C Pulse Rate 64 70 72 Pulse Rate [Right Pedal (Dorsalis Pedis) Palpation] Pulse Rate [Right Radial Palpation] Respiratory Rate 20 Blood Pressure 130/68 Pulse Oximetry 95 Oxygen Delivery 07/08/24 02:00 07/08/24 04:00 07/08/24 05:01 Temperature 36.8 C Pulse Rate 71 59 L 65 Pulse Rate [Right Pedal (Dorsalis Pedis) Palpation] Pulse Rate [Right Radial Palpation] Respiratory Rate 18 Blood Pressure 126/70 Pulse Oximetry 95 Oxygen Delivery 07/08/24 06:00 07/08/24 07:18 07/08/24 12:15 Temperature 36.4 C Pulse Rate 75 64 88 Pulse Rate [Right Pedal (Dorsalis Pedis) Palpation] Pulse Rate [Right Radial Palpation] Respiratory Rate 16 20 Blood Pressure 135/74 121/85 Pulse Oximetry 100 90 Oxygen Delivery Room Air 07/08/24 12:30 07/08/24 12:45 07/08/24 12:45 Temperature Pulse Rate 86 78 Pulse Rate [Right Pedal (Dorsalis Pedis) Palpation] 79 Pulse Rate [Right Radial Palpation] 79 Respiratory Rate 21 H 20 Blood Pressure 122/80 120/73 Pulse Oximetry 90 92 Oxygen Delivery Room Air Room Air 07/08/24 13:00 07/08/24 13:00 Temperature Pulse Rate 84 Pulse Rate [Right Pedal (Dorsalis Pedis) Palpation] 84 Pulse Rate [Right Radial Palpation] 84 Respiratory Rate 19 Blood Pressure 127/73 Pulse Oximetry 90 Oxygen Delivery Room Air Intake/Output Intake/Output: Intake & Output 07/05/24 07/06/24 07/07/24 07/08/24 23:59 23:59 23:59 23:59 Intake Total 540 1340 600 Output Total 1100 800 Balance 540 240 -200 Meds/Results Medications: Active Medications Generic Name Dose Route Start Last Admin Trade Name Freq PRN Reason Stop Dose Admin Acetaminophen 650 mg 07/06/24 14:16 Acetaminophen 325 Mg Tablet PO Q6H PRN Mild Pain (1-3) or Fever Aspirin 81 mg 07/08/24 09:00 07/08/24 09:32 Aspirin 81 Mg Enteric Tablet PO 81 mg QAM RITA Administration Atorvastatin Calcium 80 mg 07/07/24 18:00 07/07/24 17:45 Atorvastatin 40 Mg Tablet PO 80 mg QPM RITA Administration Hydrochlorothiazide 12.5 mg 07/06/24 18:00 07/07/24 17:45 Hydrochlorothiazide 12.5 Mg Capsule PO 12.5 mg QPM RITA Administration Sodium Chloride 500 mls @ 100 mls/hr 07/07/24 13:45 Normal Saline Iv IV CONT .Q5H RITA Sodium Chloride 1,000 mls @ 125 mls/hr 07/08/24 11:53 Normal Saline Iv IV CONT 07/08/24 19:52 .Q8H ONE Lisinopril 10 mg 07/06/24 18:00 07/07/24 17:45 Lisinopril 10 Mg Tablet PO 10 mg QPM RITA Administration Nitroglycerin 0.4 mg 07/06/24 14:13 Nitroglycerin Sl 0.4 Mg Tablet SUBLINGUAL Q5MIN PRN Chest Pain Ondansetron HCl 4 mg 07/06/24 14:16 Ondansetron Inj 4 Mg/2 Ml Vial IV PUSH Q6H PRN Nausea And Vomiting Radiology Results: ITS Impressions Chest X-Ray 07/06/24 09:51 IMPRESSION: 1. Mild atelectasis versus scarring in left upper lung zone and left lower lung zone. Labs Labs: Laboratory Results - last 24 hr 07/08/24 07/08/24 04:34 11:32 WBC 6.4 RBC 5.00 Hgb 15.7 Hct 46.6 MCV 93.2 MCH 31.4 MCHC 33.7 RDW 11.9 Plt Count 246 MPV 10.6 H Immature Gran % (Auto) 0.3 Neut % (Auto) 58.4 Lymph % (Auto) 27.5 Bartholomew % (Auto) 8.5 Eos % (Auto) 3.9 Baso % (Auto) 1.4 H Lymph # (Auto) 1.75 Bartholomew # (Auto) 0.5 Eos # (Auto) 0.3 Baso # (Auto) 0.1 Abs Immat Gran (auto) 0.02 Absolute Neuts (auto) 3.7 Absolute Nucleated RBC 0.000 Nucleated RBC % 0.0 Activ Coag Time Kaolin 170 H Sodium 141 Potassium 3.9 Chloride 102 Carbon Dioxide 29 Anion Gap 10 BUN 22 H Creatinine 0.77 Estim Creat Clear Calc 81 Estimated GFR > 60 Glucose 111 H Calcium 9.5 Magnesium 2.1 Total Bilirubin 0.8 AST 20 ALT 33 Alkaline Phosphatase 91 Total Protein 8.0 Albumin 4.5
[2024-07-08] MEDS: ONDANSETRON INJ 4 MG/2 ML VIAL IV PUSH (13:37)
[2024-07-08] MEDS: SODIUM CHLORIDE 0.9% IV 1,000 ML 125 ML IV CONT (13:38)
--- NOTE | 2024-07-08 14:19 | PM.DS ---
DS: Admitting Diagnosis Discharge Date 07/08/2024 Admitting Diagnosis Chest pain DS: Discharge Diagnosis Discharge Diagnosis (1) Chest pain: Qualifiers: Chest pain type: unspecified Qualified Code(s): R07.9 - Chest pain, unspecified Code(s): R07.9 - Chest pain, unspecified Status: Acute Assessment and Plan: - EKG, initial: sinus rhythm, rate 88, left axis deviation, incomplete LBBB, left ventricular hypertrophy and ST-T change, consider inferior infarct age indeterminate. - CXR: Mild atelectasis versus scarring in left upper lung zone and left lower lung zone. - Troponin:<0.012 x3 LDL 98, TSH wnl continue Aspirin Heart cath is abnl LEFT HEART CATHETERIZATION FINDINGS: 1. Left main: The left main coronary artery is widely patent without any significant obstructive disease. 2. Left anterior descending: The LAD is a large caliber vessel that provides 3 diagonal branches. The diagonal branches are free of angiographic high-grade stenosis. The proximal to mid LAD has a 90-95% stenosis. 3. Left circumflex: The left circumflex artery and the main marginal branches have mild luminal irregularities without any significant obstructive angiographic disease. The AV groove branch provides [id number] collaterals. 4. Right coronary artery: The RCA is occluded at its ostium. 5. Left ventricle: A. End-diastolic pressure 27 mmHg. B. LV gram deferred. C. No significant gradient across aortic valve on catheter pullback. 6. Opening AO pressure 136/88 and closing AO pressure 153/93 7. 20-30% stenosis of the right common femoral artery. The visualized portions of right external iliac artery is free of angiographic high-grade stenosis. cardiology recommends - to continue aggressive medical therapy. Referral to outpatient CT surgery for evaluation of coronary artery bypass grafting continue asa and statin at home (2) Hypertension: Qualifiers: Hypertension type: primary hypertension Qualified Code(s): I10 - Essential (primary) hypertension Code(s): I10 - Essential (primary) hypertension Status: Chronic Assessment and Plan: - chronic, currently 122/75 - continue home medications: Lisinopril-hydrochlorothiazide 10-12.5 mg daily DS: Summary Hospital Course Hospital Course: Heart cath is abnl LEFT HEART CATHETERIZATION FINDINGS: 1. Left main: The left main coronary artery is widely patent without any significant obstructive disease. 2. Left anterior descending: The LAD is a large caliber vessel that provides 3 diagonal branches. The diagonal branches are free of angiographic high-grade stenosis. The proximal to mid LAD has a 90-95% stenosis. 3. Left circumflex: The left circumflex artery and the main marginal branches have mild luminal irregularities without any significant obstructive angiographic disease. The AV groove branch provides [id number] collaterals. 4. Right coronary artery: The RCA is occluded at its ostium. 5. Left ventricle: A. End-diastolic pressure 27 mmHg. B. LV gram deferred. C. No significant gradient across aortic valve on catheter pullback. 6. Opening AO pressure 136/88 and closing AO pressure 153/93 7. 20-30% stenosis of the right common femoral artery. The visualized portions of right external iliac artery is free of angiographic high-grade stenosis. cardiology recommends - to continue aggressive medical therapy. Referral to outpatient CT surgery for evaluation of coronary artery bypass grafting continue asa and statin at home Time Spent with Patient Time attestation: Total time spent providing and/or coordinating discharge services:55 minutes Exam Const: General: comfortable and no acute distress Other: , male, nontoxic appearance HENMT: Face/Nose/Sinus: Normal nares present Mouth: Yes moist mucous membranes Eyes: General: appearance normal, both eyes and all related structures Sclera: sclerae normal Pupils: Equal, round and reactive pupils present EOM: EOMs intact bilaterally Resp: Effort & Inspection: normal respiratory effort Auscultation: clear to auscultation bilaterally Cardio: Rate: regular rate Rhythm: regular rhythm Other: S1-S2 present without murmur, rub, ectopy GI: Other: Abdomen soft, nondistended, nontender. Normoactive bowel sounds in all quadrants. Skin: General skin exam: normal color and no rashes or lesions noted Wounds: no wounds Neuro: Cranial nerves: Yes Equal, round and reactive pupils present Speech: normal speech Motor exam (neuro): 5/5 motor strength present throughout Sensory Exam: normal sensation Other: A&Ox4 Extrem: General: normal to inspection Psych: Mental Status: mental status grossly normal Affect: normal affect Other: Fair insight and judgment, pleasant DS: Data Data Completed and Pending Labs on day of discharge: Labs from last 24 hours 07/08/24 07/08/24 11:32 04:34 WBC 6.4 RBC 5.00 Hgb 15.7 Hct 46.6 MCV 93.2 MCH 31.4 MCHC 33.7 RDW 11.9 Plt Count 246 MPV 10.6 H Immature Gran % (Auto) 0.3 Neut % (Auto) 58.4 Lymph % (Auto) 27.5 [place] % (Auto) 8.5 Eos % (Auto) 3.9 Baso % (Auto) 1.4 H Lymph # (Auto) 1.75 [place] # (Auto) 0.5 Eos # (Auto) 0.3 Baso # (Auto) 0.1 Abs Immat Gran (auto) 0.02 Absolute Neuts (auto) 3.7 Absolute Nucleated RBC 0.000 Nucleated RBC % 0.0 Activ Coag Time Kaolin 170 H Sodium 141 Potassium 3.9 Chloride 102 Carbon Dioxide 29 Anion Gap 10 BUN 22 H Creatinine 0.77 Estim Creat Clear Calc 81 Estimated GFR > 60 Glucose 111 H Calcium 9.5 Magnesium 2.1 Total Bilirubin 0.8 AST 20 ALT 33 Alkaline Phosphatase 91 Total Protein 8.0 Albumin 4.5 Discharge Plan Discharge Attending physician on discharge: Tree Hansen Consulting providers: Sandra Moreno Discharging Clinician: Tree Hansen Anticipated Discharge Date/Time: 07/07/24 12:15 Patient Disposition: Home, Self-Care Activity: as tolerated Diet: as tolerated Discharge Instructions: [facility] [address] [place], [place] [id number] DISCHARGE INSTRUCTIONS - POST CARDIAC CATH Activity Restriction 1. No Driving for 24 hours 2. No lifting, pushing or pulling more than 10 LBS for 1 week 3. No strenuous activity or exercising for 1 week 4. Shower after 24 hours, do not soak in any water such as hot tubs or bath tubs Wound Care 1. Remove dressing and arm board 24 hours after your procedure, prior to showering 2. Lather soap and water to puncture site and rinse then pat dry 3. You may apply a new band aid to the site and remove after 24 hours then leave open to air 4. Monitor daily for redness, drainage, mild swelling and fever Report IMMEDIATELY: CALL 911 1. If you experience any swelling or bleeding from puncture site. Hold firm pressure over the puncture site until help arrives 2. If you experience any new discomfort in you back, neck, jaw, stomach or arm. Any shortness of breath, nausea, vomiting, or cold sweats 3. If you experience any swelling, tenderness, or numbness in your leg or if your leg becomes cold or has color changes. Follow Up 1. Follow your doctors discharge instructions on resuming your medications. Some medications will need to be held after your procedure 2. Follow up with the office to schedule your next appointment with your doctor 3. Drink plenty of water following your procedure, avoid alcohol *For any other questions please call the office at [phone]. Office hours are 8AM 4:30PM Monday through Monday. Continue aggressive medical therapy. Referral to outpatient CT surgery for evaluation of coronary artery bypass grafting Patient Instructions: Antibiotic Form, Left Heart Catheterization (DC) Patient Language: Chinese Stand Alone Forms: General Discharge Information Follow-up/Referrals: Sandra Moreno DO [Physician] - (F/u [facility] cardiology as instructed ontinue aggressive medical therapy. Referral to outpatient CT surgery for evaluation of coronary artery bypass grafting) UNKNOWN,DOCTOR [Primary Care Provider] - (F/u with PCP in 3-5 days ) Discharge Medications: New aspirin 81 mg Tablet,Delayed Release (Dr/Ec) 81 mg PO QAM 30 Days Qty: 30 0RF Continued atorvastatin 80 mg tablet 80 mg PO QPM lisinopril-hydrochlorothiazide 10-12.5 mg tablet 1 tablet PO QPM Date of admission: 07/06/24 14:16 Primary Care Provider: UNKNOWN,DOCTOR Admitting Provider: Vish Coffman Attending physician on admission: Vish Coffman Condition: Serious
[2024-07-08] MEDS: lisinopriL 10 MG TABLET PO (17:05)
[2024-07-08] MEDS: hydroCHLOROthiazide 12.5 MG CAPSULE PO (17:05)
[2024-07-08] MEDS: ATORVASTATIN 40 MG TABLET 80 MG PO (17:05)
== END 2024-07-08 18:30 | disposition home or self-care (01) ==
LOC: ANHED 10:14 → ANHIMU 20:05
PROVIDERS: Emergency Medicine; Internal Medicine; Student in an Organized Health Care Education/Training Program; Admitting Provider Internal Medicine; Emergency Provider Emergency Medicine; Visit Provider Family Medicine
PROC: 4A023N7 Measurement of Cardiac Sampling and Pressure, Left Heart, Percutaneous Approach (ICD-10-PCS; CPT 93452; principal; 2024-07-08 10:30)
PROC: (CPT 36140; 2024-07-08 10:30)
DX: I25.119 Atherosclerotic heart disease of native coronary artery with unspecified angina pectoris (principal); I10 Essential (primary) hypertension; E78.5 Hyperlipidemia, unspecified; Z20.822 Contact with and (suspected) exposure to COVID-19; Z79.899 Other long term (current) drug therapy
CPT/HCPCS: 36140; 36415; 71046; 80048; 80053; 80061; 83036; 83690; 83735; 83880; 84443; 84484; 85025; 85380; 85610; 85730; 87637; 93005; 93458; 96374; 99285; A9270; C1769; C1887; C1894; C8929; G0378; J1644; J2003; J2250; J2305; J2405; J3010; J7030; J7040; Q9957

== ENCOUNTER 2025-04-02 16:15 | Outpatient (RCR) | payer BC, SELFPAY ==
[2024-12-31 08:41] VITALS: PULSE 65
== END 2025-04-02 17:18 | disposition home or self-care (01) ==
LOC: ANHCPREHAB 16:15
PROVIDERS: Visit Provider Nurse Practitioner Family
DX: Z95.1 Presence of aortocoronary bypass graft (principal)
CPT/HCPCS: 93798